=== PATIENT | male | born 1945 | race Caucasian/White ===

== ENCOUNTER 2017-01-06 03:36 | Emergency (ER) | payer MEDICARE ==
[2017-01-06 03:42] VITALS: PULSE 60
[2017-01-06] MEDS ORDERED: KETOROLAC 60 MG/2 ML VIAL IM STA (04:50)
[2017-01-06] MEDS ORDERED: ORPHENADRINE 30 MG/ML 2 ML VIAL IM STA (04:50)
--- NOTE | 2017-01-06 05:41 | XR ---
EXAM: XR Lumbar Spine, 2 or 3 Views. CLINICAL HISTORY: Reason: Pain TECHNIQUE: Frontal and lateral views of the lumbar spine. COMPARISON: No relevant prior studies available. FINDINGS: Vertebrae: No compression deformity or listhesis is seen. Disc spaces: Multilevel degenerative changes with disc space narrowing and endplate osteophyte formation within the visualized lower thoracic and lumbar spine. Soft tissues: Arterial vascular calcification is noted within the aorta. IMPRESSION: 1. Multilevel lumbar spondylosis, without compression deformity or listhesis. 2. Comment: If radicular symptoms persist, correlation with MRI could be considered on a follow-up basis.
--- NOTE | 2017-01-06 05:42 | ED ---
Back Pain HPI - General Chief Complaint: Back Pain/Injury Stated Complaint: BACK PAIN Time Seen by Provider: 01/06/17 04:49 Source: patient Limitations: no limitations - History of Present Illness Complaint: back pain Onset/Timin -: days(s) Similar Symptoms Previously: Yes Place: home Radiation: none Severity: moderate Quality: aching Consistency: constant Improves With: immobilization Worsens With: movement, sitting upright Context: bending Associated Symptoms: denies other symptoms - Related Data Home Medications Medication Instructions Recorded Confirmed Aspirin EC [Ecotrin] 81 mg PO DAILY 12/05/14 01/06/17 Atorvastatin [Lipitor] 40 mg PO HS 12/05/14 01/06/17 Lisinopril [Zestril] 5 mg PO DAILY 12/05/14 01/06/17 Metoprolol Tartrate [Lopressor] 25 mg PO HS 12/05/14 01/06/17 Previous Rx's Medication Instructions Recorded Ibuprofen [Motrin] 600 mg PO Q8HR PRN #20 tab 01/06/17 Methocarbamol [Robaxin-750] 750 mg PO TID PRN #30 tablet 01/06/17 Allergies Allergy/AdvReac Type Severity Reaction Status Date / Time No Known Allergies Allergy Verified 01/06/17 03:42 Review of Systems ROS Statement: Those systems with pertinent positive or pertinent negative responses have been documented in the HPI. ROS Other: All systems not noted in ROS Statement are negative. Constitutional: Denies: fever, chills, weakness Respiratory: Denies: cough, dyspnea Cardiovascular: Denies: chest pain, edema Gastrointestinal: Denies: abdominal pain, nausea, vomiting, diarrhea Genitourinary: Denies: dysuria, hematuria Musculoskeletal: Reports: as per HPI, back pain Skin: Denies: rash Neurological: Denies: headache, weakness, numbness, paresthesias Past Medical History Past Medical History: GERD/Reflux, Hyperlipidemia, Hypertension Additional Past Medical History / Comment(s): HX OF FX RT ANKLE X2, VOCAL CORD POLYPS, STATES VOICE IS RASPY. History of Any Multi-Drug Resistant Organisms: None Reported Past Surgical History: Coronary Bypass/CABG, Heart Catheterization With Stent Additional Past Surgical History / Comment(s): LUMP REMOVED UNDER RIGHT EAR, VOCAL CORD POLYPS REMOVED (2011),. CABG (12/2011) Past Anesthesia/Blood Transfusion Reactions: No Reported Reaction Date of Last Stent Placement:: 2004 Past Psychological History: No Psychological Hx Reported Smoking Status: Former smoker Past Alcohol Use History: Rare Past Drug Use History: None Reported General Exam Limitations: no limitations General appearance: alert, in no apparent distress Head exam: Present: atraumatic, normocephalic Eye exam: Present: normal appearance. Absent: scleral icterus, conjunctival injection Neck exam: Present: normal inspection, full ROM. Absent: tenderness Respiratory exam: Present: normal lung sounds bilaterally. Absent: respiratory distress, wheezes, rales, rhonchi Cardiovascular Exam: Present: regular rate, normal rhythm, normal heart sounds. Absent: systolic murmur, diastolic murmur, rubs, gallop GI/Abdominal exam: Present: soft. Absent: distended, tenderness, guarding, rebound, rigid Extremities exam: Present: normal inspection, normal capillary refill. Absent: pedal edema, calf tenderness Back exam: Present: tenderness, paraspinal tenderness. Absent: CVA tenderness ( R), CVA tenderness (L), vertebral tenderness Neurological exam: Present: reflexes normal. Absent: motor sensory deficit Skin exam: Present: warm, dry, intact, normal color. Absent: rash Course Vital Signs 01/06/17 01/06/17 03:40 06:00 Temperature 97 F L 97.2 F L Pulse Rate 60 60 Respiratory 18 14 Rate Blood Pressure 147/73 128/63 O2 Sat by Pulse 98 100 Oximetry Disposition Clinical Impression: Strain of lumbar region Disposition: HOME SELF-CARE Condition: Fair Instructions: Acute Low Back Pain (ED) Prescriptions: Ibuprofen [Motrin] 600 mg PO Q8HR PRN #20 tab PRN Reason: Pain Methocarbamol [Robaxin-750] 750 mg PO TID PRN #30 tablet PRN Reason: pain Referrals: Glynn Marin MD [Primary Care Provider] - 1-2 days
[2017-01-06 06:01] VITALS: BP 128/63; RESP 14; TEMP 97.2
== END 2017-01-06 06:14 | disposition home or self-care (01) ==
LOC: EC 03:36
DX: S39.012A Strain of muscle, fascia and tendon of lower back, initial encounter (principal); E78.5 Hyperlipidemia, unspecified; I10 Essential (primary) hypertension; Z95.5 Presence of coronary angioplasty implant and graft; Z87.891 Personal history of nicotine dependence; Z79.82 Long term (current) use of aspirin; Z79.899 Other long term (current) drug therapy; X58.XXXA Exposure to other specified factors, initial encounter
CPT/HCPCS: 72100; 99283; 96372 ×2; J2360; J1885

== ENCOUNTER → 2017-09-30 | Outpatient (CLI) | payer MEDICARE ==
[2017-09-30 10:24] LABS: ALT 48 U/L (21-72); AST 28 U/L (17-59); Alkaline Phosphatase 64 U/L (38-126); Anion Gap 9 mmol/L; Blood Urea Nitrogen 21 mg/dL (9-20); Calcium 9.5 mg/dL (8.4-10.2); Carbon Dioxide 26 mmol/L (22-30); Chloride 106 mmol/L (98-107); Cholesterol 147 mg/dL (<200); Glucose 101 mg/dL (74-99); HDL Cholesterol 48 mg/dL (40-60); Non-African American GFR(MDRD) >60 (>60 ml/min/1.73 sqM); Potassium 4.9 mmol/L (3.5-5.1); Sodium 141 mmol/L (137-145); Total Bilirubin 0.9 mg/dL (0.2-1.3); Total Protein 7.1 g/dL (6.3-8.2)
== END | disposition home or self-care (01) ==
LOC: LABWHC1 09:29
PROVIDERS: ATTEND Internal Medicine Interventional Cardiology
DX: E78.2 Mixed hyperlipidemia (principal)
CPT/HCPCS: 36415; 80053; 80061

== ENCOUNTER → 2017-12-30 | Outpatient (CLI) | payer MEDICARE ==
[2017-12-30 09:10] LABS: Cholesterol 109 mg/dL (<200); HDL Cholesterol 50 mg/dL (40-60); LDL Cholesterol,Calculated 41 mg/dL (0-99); Triglycerides 88 mg/dL (<150)
== END | disposition home or self-care (01) ==
LOC: LABWHC1 08:14
PROVIDERS: ATTEND Physician Assistant Medical
DX: E78.5 Hyperlipidemia, unspecified (principal); I25.10 Atherosclerotic heart disease of native coronary artery without angina pectoris
CPT/HCPCS: 36415; 80061

== ENCOUNTER → 2018-06-07 | Outpatient (CLI) | payer MEDICARE ==
[2018-06-07 10:27] LABS: ALT 38 U/L (21-72); AST 31 U/L (17-59); Albumin 3.9 g/dL (3.5-5.0); Alkaline Phosphatase 61 U/L (38-126); Anion Gap 6 mmol/L; Blood Urea Nitrogen 25 mg/dL (9-20); Carbon Dioxide 26 mmol/L (22-30); Chloride 107 mmol/L (98-107); Cholesterol 108 mg/dL (<200); Glucose 100 mg/dL (74-99); HDL Cholesterol 49 mg/dL (40-60); LDL Cholesterol,Calculated 46 mg/dL (0-99); Potassium 4.6 mmol/L (3.5-5.1); Sodium 139 mmol/L (137-145); Total Bilirubin 0.7 mg/dL (0.2-1.3); Total Protein 6.4 g/dL (6.3-8.2); Triglycerides 63 mg/dL (<150)
== END | disposition home or self-care (01) ==
LOC: LABWHC1 08:28
PROVIDERS: ATTEND Internal Medicine Interventional Cardiology
DX: E78.2 Mixed hyperlipidemia (principal)
CPT/HCPCS: 36415; 80053; 80061

== ENCOUNTER → 2018-12-21 | Outpatient (CLI) | payer MEDICARE ==
[2018-12-21 18:14] LABS: LDL Cholesterol,Calculated 51.2 mg/dL (0.0-131.0); VLDL Calculation 24.8 mg/dL (5.00-40.00)
== END | disposition home or self-care (01) ==
LOC: LABWHC1 08:17
PROVIDERS: ATTEND Internal Medicine Interventional Cardiology
DX: E78.2 Mixed hyperlipidemia (principal)
CPT/HCPCS: 36415; 80061; 84450; 84460

== ENCOUNTER 2018-12-28 11:58 | Inpatient (IN) | payer MEDICARE ==
[2018-12-28] MEDS ORDERED: NITROGLYCERIN OINT 1 INCH/GM PACKET TOPICAL STA (12:48)
[2018-12-28] MEDS ORDERED: ASPIRIN 81 MG PO STA (12:48)
--- NOTE | 2018-12-28 12:53 | ED ---
General Adult HPI - General Chief complaint: Chest Pain Stated complaint: Chest discomfort Time Seen by Provider: 12/28/18 12:31 Source: patient, RN notes reviewed Mode of arrival: wheelchair Limitations: no limitations - History of Present Illness Initial comments: Patient is a pleasant 73-year-old male presenting to the emergency Department with chest discomfort. Onset of symptoms was yesterday after snowblowing. Patient had pressure in his chest with associated dyspnea. Symptoms still remained somewhat however minimal at this point. No associated nausea or diaphoresis. Patient has had similar symptoms times in the past associated with this heart. Discomfort feels a pressure. No radiation. No leg pain or leg swelling. No cough or fever. - Related Data Home Medications Medication Instructions Recorded Confirmed Aspirin EC [Ecotrin] 81 mg PO DAILY 12/05/14 12/28/18 Lisinopril [Zestril] 5 mg PO DAILY 12/05/14 12/28/18 Metoprolol Tartrate [Lopressor] 25 mg PO HS 12/05/14 12/28/18 Atorvastatin Calcium [Lipitor] 20 mg PO DAILY 12/28/18 12/28/18 Cholecalciferol [Vitamin D3] 1,000 unit PO DAILY 12/28/18 12/28/18 Multivitamin,Therapeutic [Thera] 1 tab PO DAILY 12/28/18 12/28/18 [place]-3 Fatty Acids/Fish Oil [Fish 1 cap PO DAILY 12/28/18 12/28/18 Oil 1,000 mg Softgel] Tamsulosin [Flomax] 0.4 mg PO DAILY 12/28/18 12/28/18 Allergies Allergy/AdvReac Type Severity Reaction Status Date / Time No Known Allergies Allergy Verified 12/28/18 12:37 Review of Systems ROS Statement: Those systems with pertinent positive or pertinent negative responses have been documented in the HPI. ROS Other: All systems not noted in ROS Statement are negative. Constitutional: Denies: fever Eyes: Denies: eye pain ENT: Denies: ear pain Respiratory: Reports: dyspnea Cardiovascular: Reports: chest pain. Denies: palpitations, edema Endocrine: Denies: fatigue Gastrointestinal: Denies: abdominal pain Genitourinary: Denies: dysuria Musculoskeletal: Denies: back pain Skin: Denies: rash Neurological: Denies: weakness Past Medical History Past Medical History: GERD/Reflux, Hyperlipidemia, Hypertension Additional Past Medical History / Comment(s): HX OF FX RT ANKLE X2, VOCAL CORD POLYPS, STATES VOICE IS RASPY. History of Any Multi-Drug Resistant Organisms: None Reported Past Surgical History: Coronary Bypass/CABG, Heart Catheterization With Stent Additional Past Surgical History / Comment(s): LUMP REMOVED UNDER RIGHT EAR, VOCAL CORD POLYPS REMOVED (2011),. CABG (12/2011) Past Anesthesia/Blood Transfusion Reactions: No Reported Reaction Date of Last Stent Placement:: 2004 Past Psychological History: No Psychological Hx Reported Smoking Status: Former smoker Past Alcohol Use History: Rare Past Drug Use History: None Reported General Exam Limitations: no limitations General appearance: alert, in no apparent distress Head exam: Present: atraumatic Eye exam: Present: normal appearance, PERRL ENT exam: Present: normal oropharynx Neck exam: Present: normal inspection Respiratory exam: Present: normal lung sounds bilaterally. Absent: chest wall tenderness Cardiovascular Exam: Present: regular rate, normal rhythm Expanded Peripheral pulses: 2+: Radial (R), Radial (L), Posterior Tibialis (R), Posterior Tibialis (L) GI/Abdominal exam: Present: soft. Absent: distended, tenderness Extremities exam: Present: normal inspection. Absent: pedal edema, calf tenderness Neurological exam: Present: alert Psychiatric exam: Present: normal affect, normal mood Skin exam: Present: normal color Course Vital Signs 12/28/18 12/28/18 12:10 13:08 Temperature 97.6 F Pulse Rate 65 Pulse Rate [ 66 Apical] Respiratory 16 Rate Blood Pressure 148/72 O2 Sat by Pulse 99 Oximetry EKG Findings - EKG Comments: EKG Findings:: Normal sinus rhythm at 62. MD 198. QRS 122. QT 392. QTC 397. Normal axis. Right bundle branch block. Nonspecific ST-T. Patient is EKG from 12/04/2014 reviewed. Medical Decision Making - Medical Decision Making Patient reevaluated and resting comfortably in bed. Patient and family updated on results and plan. Case discussed in detail with Dr. Arreguin, will admit covering for - Lab Data Result diagrams: 12/28/18 12:49 12/28/18 12:49 Lab Results 12/28/18 12/28/18 12/28/18 Range/Units 12:49 12:49 12:49 WBC 7.1 (3.8-10.6) k/uL RBC 4.83 (4.30-5.90) m/uL Hgb 14.6 (13.0-17.5) gm/dL Hct 45.6 (39.0-53.0) % MCV 94.4 (80.0-100.0) fL MCH 30.2 (25.0-35.0) pg MCHC 32.0 (31.0-37.0) g/dL RDW 12.8 (11.5-15.5) % Plt Count 199 (150-450) k/uL Neutrophils % 57 % Lymphocytes % 31 % Monocytes % 8 % Eosinophils % 2 % Basophils % 1 % Neutrophils # 4.1 (1.3-7.7) k/uL Lymphocytes # 2.2 (1.0-4.8) k/uL Monocytes # 0.5 (0-1.0) k/uL Eosinophils # 0.1 (0-0.7) k/uL Basophils # 0.0 (0-0.2) k/uL PT (9.0-12.0) sec INR (<1.2) APTT (22.0-30.0) sec Sodium 141 (137-145) mmol/L Potassium 4.8 (3.5-5.1) mmol/L Chloride 107 (98-107) mmol/L Carbon Dioxide 27 (22-30) mmol/L Anion Gap 7 mmol/L BUN 20 (9-20) mg/dL Creatinine 0.95 (0.66-1.25) mg/dL Est GFR (CKD-EPI)AfAm >90 (>60 ml/min/1.73 sqM) Est GFR (CKD-EPI)NonAf 80 (>60 ml/min/1.73 sqM) Glucose 81 (74-99) mg/dL Calcium 9.7 (8.4-10.2) mg/dL Magnesium 2.2 (1.6-2.3) mg/dL Total Bilirubin 0.7 (0.2-1.3) mg/dL AST 26 (17-59) U/L ALT 44 (21-72) U/L Alkaline Phosphatase 91 (38-126) U/L Creatine Kinase 76 (55-170) U/L CK-MB (CK-2) 0.5 (0.0-2.4) ng/mL Troponin I <0.012 (0.000-0.034) ng/mL NT-Pro-B Natriuret Pep pg/mL Total Protein 7.3 (6.3-8.2) g/dL Albumin 4.4 (3.5-5.0) g/dL 12/28/18 12/28/18 Range/Units 12:49 12:49 WBC (3.8-10.6) k/uL RBC (4.30-5.90) m/uL Hgb (13.0-17.5) gm/dL Hct (39.0-53.0) % MCV (80.0-100.0) fL MCH (25.0-35.0) pg MCHC (31.0-37.0) g/dL RDW (11.5-15.5) % Plt Count (150-450) k/uL Neutrophils % % Lymphocytes % % Monocytes % % Eosinophils % % Basophils % % Neutrophils # (1.3-7.7) k/uL Lymphocytes # (1.0-4.8) k/uL Monocytes # (0-1.0) k/uL Eosinophils # (0-0.7) k/uL Basophils # (0-0.2) k/uL PT 9.8 (9.0-12.0) sec INR 0.9 (<1.2) APTT 24.6 (22.0-30.0) sec Sodium (137-145) mmol/L Potassium (3.5-5.1) mmol/L Chloride (98-107) mmol/L Carbon Dioxide (22-30) mmol/L Anion Gap mmol/L BUN (9-20) mg/dL Creatinine (0.66-1.25) mg/dL Est GFR (CKD-EPI)AfAm (>60 ml/min/1.73 sqM) Est GFR (CKD-EPI)NonAf (>60 ml/min/1.73 sqM) Glucose (74-99) mg/dL Calcium (8.4-10.2) mg/dL Magnesium (1.6-2.3) mg/dL Total Bilirubin (0.2-1.3) mg/dL AST (17-59) U/L ALT (21-72) U/L Alkaline Phosphatase (38-126) U/L Creatine Kinase (55-170) U/L CK-MB (CK-2) (0.0-2.4) ng/mL Troponin I (0.000-0.034) ng/mL NT-Pro-B Natriuret Pep 105 pg/mL Total Protein (6.3-8.2) g/dL Albumin (3.5-5.0) g/dL - Radiology Data Radiology results: image reviewed (Chest x-ray reveals no acute abnormality.) Disposition Clinical Impression: Chest pain Disposition: ADMITTED IP TO THIS HOSP Is patient prescribed a controlled substance at d/c from ED?: No Referrals: Glynn Marin MD [Primary Care Provider] - 1-2 days Decision Time: 14:27
[2018-12-28 13:17] LABS: ALT 44 U/L (21-72); AST 26 U/L (17-59); Albumin 4.4 g/dL (3.5-5.0); Alkaline Phosphatase 91 U/L (38-126); Anion Gap 7 mmol/L; Blood Urea Nitrogen 20 mg/dL (9-20); Calcium 9.7 mg/dL (8.4-10.2); Carbon Dioxide 27 mmol/L (22-30); Chloride 107 mmol/L (98-107); Creatine Kinase 76 U/L (55-170); Glucose 81 mg/dL (74-99); Magnesium 2.2 mg/dL (1.6-2.3); Potassium 4.8 mmol/L (3.5-5.1); Sodium 141 mmol/L (137-145); Total Bilirubin 0.7 mg/dL (0.2-1.3); Total Protein 7.3 g/dL (6.3-8.2)
[2018-12-28 13:18] LABS: Basophils % (A) 1 %; Eosinophils # (A) 0.1 k/uL (0-0.7); Eosinophils % (A) 2 %; HCT 45.6 % (39.0-53.0); HGB 14.6 gm/dL (13.0-17.5); Lymphocytes # (A) 2.2 k/uL (1.0-4.8); Lymphocytes % (A) 31 %; MCH 30.2 pg (25.0-35.0); MCV 94.4 fL (80.0-100.0); Mean Platelet Volume 7.6; Monocytes # (A) 0.5 k/uL (0-1.0); Monocytes % (A) 8 %; Neutrophils # (A) 4.1 k/uL (1.3-7.7); Neutrophils % (A) 57 %; Platelet Count 199 k/uL (150-450); RBC 4.83 m/uL (4.30-5.90); RDW 12.8 % (11.5-15.5); WBC 7.1 k/uL (3.8-10.6)
[2018-12-28 13:23] LABS: INR 0.9 (<1.2); Partial Thromboplastin Time 24.6 sec (22.0-30.0); Prothrombin Time 9.8 sec (9.0-12.0)
[2018-12-28 13:40] LABS: Creatine Kinase MB 0.5 ng/mL (0.0-2.4); Troponin I <0.012 ng/mL (0.000-0.034)
--- NOTE | 2018-12-28 14:03 | XR ---
EXAMINATION TYPE: XR chest 2V DATE OF EXAM: 12/28/2018 COMPARISON: Chest x-ray January 20, 2012. HISTORY: Chest pain. TECHNIQUE: Frontal and lateral views of the chest are obtained. FINDINGS: Post CABG changes with mediastinal clips and sternal wires is redemonstrated. There is no f ocal air space opacity, pleural effusion, or pneumothorax seen. The cardiac silhouette size is withi n normal limits. The osseous structures are intact. IMPRESSION: No acute cardiopulmonary process.
[2018-12-28] MEDS ORDERED: NITROGLYCERIN SL TABS 0.4 MG TAB SUBLINGUAL PRN (14:28)
[2018-12-28] MEDS ORDERED: METOPROLOL TARTRATE 25 MG TAB PO SCH (21:30)
[2018-12-28 22:34] VITALS: BMI 31.7
--- NOTE | 2018-12-28 22:40 | HP ---
HISTORY AND PHYSICAL DATE OF ADMISSION: December 28, 2018 PRESENTING COMPLAINT: Chest pain. HISTORY OF PRESENTING COMPLAINT: A very pleasant 73-year-old patient Dr. Marin from [place] and clinical psychologist licensed Dr. Velázquez. Chronic stable medical conditions include GERD, hypertension, hyperlipidemia, osteoarthritis especially of the knees. The patient has known coronary with stent and coronary bypass about 12 years ago. The patient normally able to snow blow his drive as his neighbors. Yesterday, he did this you do not drive, then started feeling unwell, developed some chest pressure and tightness and had to go back and lay down. Earlier today, the patient again had some chest pressure, did not radiate, felt a bit short of breath, chest tightness, tired, run down and decided to come in, was diagnosed with unstable angina. Troponin was negative. The patient's last stress test was a while ago. The patient is otherwise rather active. REVIEW OF SYSTEMS: CONSTITUTIONAL: None. HEENT: None. RESPIRATORY: None. CARDIOVASCULAR: As above. GASTROINTESTINAL: Heartburn. GENITOURINARY: LYMPHATICS: None. PSYCHIATRIC: None. NEUROLOGICAL none. PAST MEDICAL HISTORY: GERD, hypertension, hyperlipidemia, coronary artery with stent and bypass, vocal cord polyps that were removed. PAST SURGICAL HISTORY: Coronary bypass stent, lump removed from the right ear and vocal cord polyps removed. SOCIAL HISTORY: The patient smoked in the remote past. . 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 HOME MEDICATIONS: 1. Flomax 0.4 mg a day. 2. Fish oil 1000 mg a day. 3. Multivitamin one tablet day. 4. Vitamin D3 3000 units p.o. daily. 5. Lopressor 25 mg at bedtime. 6. Zestril 5 mg p.o. daily. 7. Lipitor 20 mg p.o. daily. 8. Aspirin 81 mg p.o. daily. ALLERGIES: None. PHYSICAL EXAMINATION: VITAL SIGNS: Temperature 97.5, pulse 59, respirations 16, blood pressure 151/68, pulse 98% on room air. GENERAL APPEARANCE: Well built. BMI 31.8. Sitting up comfortable, eyes: Pupils appearance of nose and ears are normal. Neck JVD not raised. Mass not palpable. Respiratory effort: Lungs fair entry. Cardiovascular 1st and 2nd sounds normal. No edema. ABDOMEN: Soft, nontender. Liver and spleen not palpable. Lymphatics: No lymph node palpable. PSYCHIATRY: Alert and oriented x3. Mood and affect normal neurological pupils clear grossly intact. Power sensation grossly intact. INVESTIGATIONS: White count 7.1, hemoglobin 14.6 potassium 4.8. Troponin times. EKG tracing personally reviewed by me shows right bundle branch block. X-ray film personally reviewed by me shows lung bryant to be clear. ASSESSMENT: 1. Unstable angina in a patient with known coronary artery disease with no stress test. Care was discussed with the patient and . Questions were answered. A copy for Dr. Marin. Will be kept after cardiac catheterization as symptoms recurrent. gastroesophageal reflux disease hyperlipidemia next essential hypertension, artery prior with bypass 20 years ago. PLAN: The patient is currently aspirin nitroglycerin paste. Home medications are resumed. The patient is currently symptom-free. We will hold off any IV heparin. The patient will be kept n.p.o. after midnight for possible cardiac catheterization. Care was discussed the patient and at the bedside. Questions were answered copy Dr. Marin in [place]. The. MMODL / IJN: [id number] /
[2018-12-28] MEDS: NITROGLYCERIN OINT 1 INCH/GM PACKET TOPICAL SCH (22:46)
[2018-12-28] MEDS: ATORVASTATIN 20 MG TAB PO SCH (22:48)
[2018-12-29] MEDS: NITROGLYCERIN OINT 1 INCH/GM PACKET TOPICAL SCH ×2 (00:06→05:50)
[2018-12-29 01:27] LABS: Cholesterol 111 mg/dL (<200); HDL Cholesterol 43 mg/dL (40-60); LDL Cholesterol,Calculated 42 mg/dL (0-99); Triglycerides 130 mg/dL (<150)
[2018-12-29] MEDS ORDERED: ASPIRIN 325 MG TAB PO SCH (09:00)
[2018-12-29] MEDS ORDERED: ATORVASTATIN 20 MG TAB PO SCH (09:00)
[2018-12-29] MEDS ORDERED: ASPIRIN 81 MG PO SCH (09:00)
[2018-12-29] MEDS: ISOSORBIDE MONONITRATE ER 30 MG TAB.ER.24H PO SCH (09:23)
[2018-12-29] MEDS: LISINOPRIL 5 MG TAB PO SCH (09:23)
[2018-12-29] MEDS: ATORVASTATIN 20 MG TAB PO SCH (09:23)
[2018-12-29] MEDS: TAMSULOSIN 0.4 MG CAP.ER.24H PO SCH (09:23)
[2018-12-29] MEDS ORDERED: REGADENOSON 0.4 MG/5 ML SYRINGE IV ONE (10:11)
[2018-12-29] MEDS ORDERED: CAFFEINE CITRATE 60 MG/3 ML VIAL IV PRN (10:11)
--- NOTE | 2018-12-29 11:21 | P.CRDCN ---
History of Present Illness History of present illness: This is a pleasant 73-year-old male past medical history significant for coronary artery disease status post stent placement to the mid OM1 in 2004 and subsequently thereafter 2-vessel bypass in 2011 with a JIMENEZ to LAD and SVG to RCA. He also has hypertension, dyslipidemia and BPH. He follows in the office with Dr. Velázquez. We have been asked to see him in consultation for symptoms of chest discomfort. He states Tuesday while he was snow blowing he started feeling a tightness in his chest in the mid-sternal region associated with significant diaphoresis and mild shortness of breath. There was no radiation to the arm, back, neck or jaw. He had to stop snow blowing and go inside to sit down due to the discomfort. He sat down and took a SL nitroglycerin. His symptoms slowly improved throughout the remainder of the day. He eventually started to feel better. 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 He again had a discomfort in his chest and felt generally unwell. He went to see his PCP and was sent in for further evaluation. He states he has been increasingly fatigued over the previous few weeks as well, which is abnormal for him. Heart rates have been running on the low side in the 40-50 range. EKG reveals right bundle branch block with no ST changes. Chest xray negative for an acute cardiopulmonary process. Laboratory data reviewed, WBC 7.1, hgb 14.6, plt 199, sodium 141, potassium 4.8 , creatinine 0.95, magnesium 2.2, cardiac enzymes negative 3, LDL 42 and HDL 43. Current cardiac medications include aspirin 81 mg daily, atorvastatin 20 mg daily, lisinopril 5 mg daily, Lopressor 25 mg daily. Most recent echocardiogram obtained in the office May 2018 reveals preserved left ventricular systolic function, moderate mitral regurgitation, mild tricuspid regurgitation and mild aortic regurgitation. Most recent stress test performed in the office 2015 was negative for reversible cardiac ischemia. At the time of my exam: CONSTITUTIONAL: Denies fever. Denies chills. EYES: Denies blurred vision. Denies vision changes. Denies eye pain. EARS, NOSE, MOUTH & THROAT: Denies headache. Denies sore throat. Denies ear pain. CARDIOVASCULAR: Denies chest pain. Denies shortness of breath. Denies orthopnea. Denies PND. Denies palpitations. RESPIRATORY: Denies cough. GASTROINTESTINAL: Denies abdominal pain. Denies diarrhea. Denies constipation. Denies nausea. Denies vomiting. MUSCULOSKELETAL: Denies myalgias. INTEGUMENTARY: Denies pruitis. Denies rash. NEUROLOGIC: Denies numbness. Denies tingling. Denies weakness. PSYCHIATRIC: Denies anxiety. Denies depression. ENDOCRINE: Denies fatigue. Denies weight change. Denies polydipsia. Denies polyurina. GENITOURINARY: Denies burning, hematuria or urgency with micturation. HEMATOLOGIC: Denies history of anemia. Denies bleeding. Blood pressure 143/74 artery 58 afebrile maintaining oxygen saturation on room air GENERAL: This is a 73-year-old male in no apparent distress at the time of my examination. HEENT: Head is atraumatic, normocephalic. Pupils are equal, round. Sclerae anicteric. Conjunctivae are clear. Mucous membranes of the mouth are moist. Neck is supple. There is no jugular venous distention. No carotid bruit is heard. LUNGS: Clear to auscultation no wheezes, rales or rhonchi. No chest wall tenderness is noted on palpation or with deep breathing. HEART: Regular rate and rhythm with murmur at the left sternal border, no rubs or gallops. S1 and S2 heard. ABDOMEN: Soft, nontender. Bowel sounds are heard. No organomegaly noted. EXTREMITIES: No evidence of peripheral edema and no calf tenderness noted. VASCULAR: Radial and dorsalis pedis pulses palpated, no evidence of clubbing. NEUROLOGIC: Patient is awake, alert and oriented x3. ASSESSMENT Chest pain, possibly suggestive of angina with history of coronary artery disease History of coronary artery disease s/p bypass grafting 2012 Hypertension Dyslipidemia PLAN An acute coronary event has been ruled out. Obtain 2D echocardiogram and doppler study to assess cardiac structure and function. Add on a small dose of oral nitrate, imdur 30 mg. Given first dose now. Increase activity in the farooq and assess for exertional chest discomfort. If he has symptoms of exertional chest pain or angina we will proceed with cardiac catheterization. If he is chest pain free with exertion we will order a stress test to assess for reversible cardiac ischemia. Discontinue lopressor for bradycardia. Further recommendations to follow based on clinical course. Thank you kindly for this consultation. Nurse Practitioner note has been reviewed, I agree with a documented findings and plan of care. Patient was seen and examined. Past Medical History Past Medical History: Coronary Artery Disease (CAD), GERD/Reflux, Hyperlipidemia , Hypertension Additional Past Medical History / Comment(s): HX OF FX RT ANKLE X2, VOCAL CORD POLYPS, STATES VOICE IS RASPY. History of Any Multi-Drug Resistant Organisms: None Reported Past Surgical History: Coronary Bypass/CABG, Heart Catheterization With Stent Additional Past Surgical History / Comment(s): LUMP REMOVED UNDER RIGHT EAR, VOCAL CORD POLYPS REMOVED (2011),. CABG - double (12/2011) Past Anesthesia/Blood Transfusion Reactions: No Reported Reaction Date of Last Stent Placement:: 2004 Past Psychological History: No Psychological Hx Reported Smoking Status: Former smoker Past Alcohol Use History: Rare Past Drug Use History: None Reported - Past Family History Father Additional Family Medical History / Comment(s): killed by train Mother Additional Family Medical History / Comment(s): killed by train Medications and Allergies Home Medications Medication Instructions Recorded Confirmed Type Aspirin EC [Ecotrin] 81 mg PO DAILY 12/05/14 12/28/18 History Lisinopril [Zestril] 5 mg PO DAILY 12/05/14 12/28/18 History Metoprolol Tartrate [Lopressor] 25 mg PO HS 12/05/14 12/28/18 History Atorvastatin Calcium [Lipitor] 20 mg PO DAILY 12/28/18 12/28/18 History Cholecalciferol [Vitamin D3] 1,000 unit PO DAILY 12/28/18 12/28/18 History Multivitamin,Therapeutic [Thera] 1 tab PO DAILY 12/28/18 12/28/18 History Slade-3 Fatty Acids/Fish Oil [Fish 1 cap PO DAILY 12/28/18 12/28/18 History Oil 1,000 mg Softgel] Tamsulosin [Flomax] 0.4 mg PO DAILY 12/28/18 12/28/18 History Allergies Allergy/AdvReac Type Severity Reaction Status Date / Time No Known Allergies Allergy Verified 12/28/18 12:37 Physical Exam Vitals: Vital Signs Temp Pulse Pulse Pulse Resp BP BP 12/29/18 03:56 97.6 F 48 L 16 118/62 12/29/18 03:32 16 12/29/18 00:00 97.7 F 59 L 16 134/67 12/28/18 20:00 16 12/28/18 19:51 97.5 F L 52 L 16 135/68 12/28/18 18:47 59 L 15 149/86 12/28/18 13:08 66 12/28/18 12:10 97.6 F 65 16 148/72 Pulse Ox 12/29/18 03:56 98 12/29/18 03:32 12/29/18 00:00 96 12/28/18 20:00 12/28/18 19:51 98 12/28/18 18:47 95 12/28/18 13:08 12/28/18 12:10 99 Intake and Output 12/28/18 12/29/18 12/29/18 22:59 06:59 14:59 Other: Voiding Method Toilet Toilet # Voids 2 2 Results 12/28/18 12:49 12/28/18 12:49 Cardiac Enzymes 12/28/18 12/28/18 12/28/18 Range/Units 12:49 12:49 19:06 AST 26 (17-59) U/L CK-MB (CK-2) 0.5 (0.0-2.4) ng/mL Troponin I <0.012 <0.012 (0.000-0.034) ng/mL 12/29/18 Range/Units 00:28 AST (17-59) U/L CK-MB (CK-2) (0.0-2.4) ng/mL Troponin I <0.012 (0.000-0.034) ng/mL Coagulation 12/28/18 Range/Units 12:49 PT 9.8 (9.0-12.0) sec APTT 24.6 (22.0-30.0) sec Lipids 12/28/18 Range/Units 12:49 Triglycerides 130 (<150) mg/dL Cholesterol 111 (<200) mg/dL HDL Cholesterol 43 (40-60) mg/dL CBC 12/28/18 Range/Units 12:49 WBC 7.1 (3.8-10.6) k/uL RBC 4.83 (4.30-5.90) m/uL Hgb 14.6 (13.0-17.5) gm/dL Hct 45.6 (39.0-53.0) % Plt Count 199 (150-450) k/uL Comprehensive Metabolic Panel 12/28/18 Range/Units 12:49 Sodium 141 (137-145) mmol/L Potassium 4.8 (3.5-5.1) mmol/L Chloride 107 (98-107) mmol/L Carbon Dioxide 27 (22-30) mmol/L BUN 20 (9-20) mg/dL Creatinine 0.95 (0.66-1.25) mg/dL Glucose 81 (74-99) mg/dL Calcium 9.7 (8.4-10.2) mg/dL AST 26 (17-59) U/L ALT 44 (21-72) U/L Alkaline Phosphatase 91 (38-126) U/L Total Protein 7.3 (6.3-8.2) g/dL Albumin 4.4 (3.5-5.0) g/dL Current Medications Generic Name Dose Route Start Last Admin Trade Name Freq PRN Reason Stop Dose Admin Aspirin 81 mg 12/29/18 09:00 Aspirin PO DAILY [facility] Atorvastatin Calcium 20 mg 12/28/18 22:37 12/28/18 22:48 Lipitor PO 20 mg DAILY JEAN Administration Lisinopril 5 mg 12/29/18 09:00 Zestril PO DAILY [facility] Metoprolol Tartrate 25 mg 12/28/18 21:30 12/28/18 22:48 Lopressor PO 25 mg HS JEAN Administration Nitroglycerin 1 inch 12/28/18 18:00 12/29/18 05:50 Nitro-Bid Oint TOPICAL Not Given Q6HR [facility] Nitroglycerin 0.4 mg 12/28/18 14:28 Nitrostat SUBLINGUAL Q5M PRN Chest Pain Sodium Chloride 10 ml 12/28/18 21:00 12/28/18 22:49 Saline Flush IV 10 ml BID [facility] Administration Tamsulosin HCl 0.4 mg 12/29/18 09:00 Flomax PO DAILY [facility] Intake and Output 12/28/18 12/29/18 12/29/18 22:59 06:59 14:59 Other: Voiding Method Toilet Toilet # Voids 2 2 12/28/18 12:49 12/28/18 12:49
--- NOTE | 2018-12-29 14:41 | NM ---
EXAMINATION TYPE: NM stress lexiscan cardiolite DATE OF EXAM: 12/29/2018 COMPARISON: Chest x-ray 12/28/2018 HISTORY: Chest pain TECHNIQUE: After the intravenous administration of 10.26 mCi Tc 99m Sestamibi - Cardiolite resting S PECT images acquired 55 minutes post injection. The patient received 0.4mg Lexiscan, 25.6 mCi Tc 99m Sestamibi - Stress images obtained [address] injection FINDINGS: Review of stress and rest SPECT images demonstrates some questionable mild decreased uptake along the anteroseptal left ventricle on stress as compared to rest images. Gated analysis shows normal wall m otion with an estimated left ventricular ejection fraction of 72 %. IMPRESSION: Question some pharmacologically induced left ventricular myocardial ischemia along the anteroseptal l eft ventricle towards the base of the heart. Consider echocardiographic correlation for elevated ejec tion fraction.
[2018-12-29] MEDS ORDERED: SODIUM CHLORIDE 0.9% 1,000 ML in EMPTY BAG 1 BAG IV ONE (15:49)
[2018-12-29] MEDS ORDERED: ALPRAZolam 0.25 MG TAB PO PRN (15:49)
[2018-12-29] MEDS ORDERED: ALPRAZolam 0.5 MG TAB PO PRN (15:49)
--- NOTE | 2018-12-29 17:32 | PN ---
PROGRESS NOTE DATE OF SERVICE: 12/29/2018 PRESENTING COMPLAINT: Chest pain. INTERVAL HISTORY: Patient admitted with unstable angina. He did undergo a stress test that came back positive. No further episodes. Patient is due to go for a cardiac catheterization. REVIEW OF SYSTEMS: Done for constitutional, cardiovascular, GI, pulmonary; relevant findings as above. CURRENT MEDICATIONS: Reviewed. They include aspirin, Lipitor, Imdur. PHYSICAL EXAMINATION: Temperature 98.2, pulse 57, respiration 18, blood pressure 118/63, pulse ox 96% on room air. GENERAL APPEARANCE: Sitting up. Comfortable. EYES: Pupils equal. Conjunctivae normal. NECK: JVD not raised. Mass not palpable. RESPIRATORY: Effort normal. Lungs are clear. CARDIOVASCULAR: First and second sounds normal. No edema. ABDOMEN: Soft, non-tender. Liver and spleen not palpable. PSYCHIATRY: Alert and oriented x3. Mood and affect normal. INVESTIGATIONS: Troponin x3 negative. Nuclear stress test positive for ischemia. ASSESSMENT: 1. Unstable angina in a patient with known coronary artery disease, now with a positive stress test, awaiting cardiac catheterization. 2. Gastroesophageal reflux disease. 3. Hyperlipidemia. 4. Essential hypertension. 5. Coronary artery disease with prior history of coronary artery bypass. PLAN: Continue current medication and treatment plan. Await cardiac catheterization per Cardiology. MMODL / IJN: [id number] /
[2018-12-29 19:45] VITALS: RESP 16
--- NOTE | 2018-12-29 19:49 | ECHOF ---
Referral Reason:cp MEASUREMENTS -------- HEIGHT: 172.7 cm WEIGHT: 94.8 kg BP: 118/62 RVIDd: 2.7 cm (< 3.3) IVSd: 1.1 cm (0.6 - 1.1) LVIDd: 4.8 cm (3.9 - 5.3) LVPWd: 1.1 cm (0.6 - 1.1) IVSs: 1.3 cm LVIDs: 3.7 cm LVPWs: 1.4 cm LAESV Index (A-L): 17.23 ml/m Ao Diam: 3.5 cm (2.0 - 3.7) AV Cusp: 2.0 cm (1.5 - 2.6) LA Diam: 4.2 cm (2.7 - 3.8) EPSS: 0.9 cm MV E Bryce: 0.89 m/s MV DecT: 257 ms MV A Bryce: 0.88 m/s MV E/A Ratio: 1.00 AR PHT: 445 ms RAP: 5.00 mmHg RVSP: 25.56 mmHg MV EF SLOPE: 81.93 mm/s (70 - 150) MV EXCURSION: 1.64 cm (> 18.000) FINDINGS -------- Sinus rhythm. This was a technically difficult study with suboptimal views. The left ventricular size is normal. There is borderline concentric left ventricular hypertrophy. Overall left ventricular systolic function is normal with, an EF between 55 - 60 %. The right ventricle is normal in size and function. Normal LA size by volume 22+/-6 ml/m2. The right atrium is normal in size. 3 ml of Lumason was utilized for enhancement of images. Aortic valve is trileaflet and is mildly thickened. There is mild aortic regurgitation. There is no evidence of aortic stenosis. The mitral valve leaflets are mildly thickened. There is trace to mild mitral regurgitation. Mild tricuspid regurgitation present. Right ventricular systolic pressure is normal at < 35 mmHg. There is no evidence of pulmonary hypertension. The pulmonic valve was not well visualized. The aortic root size is normal. IVC Not well visulized. There is no pericardial effusion. CONCLUSIONS -------- 1. Sinus rhythm. 2. This was a technically difficult study with suboptimal views. 3. The left ventricular size is normal. 4. There is borderline concentric left ventricular hypertrophy. 5. Overall left ventricular systolic function is normal with, an EF between 55 - 60 %. 6. Normal LA size by volume 22+/-6 ml/m2. 7. 3 ml of Lumason was utilized for enhancement of images. 8. Aortic valve is trileaflet and is mildly thickened. 9. There is mild aortic regurgitation. 10. The mitral valve leaflets are mildly thickened. 11. There is trace to mild mitral regurgitation. 12. Mild tricuspid regurgitation present. 13. Right ventricular systolic pressure is normal at < 35 mmHg. 14. There is no evidence of pulmonary hypertension. 15. The pulmonic valve was not well visualized. 16. The aortic root size is normal. 17. IVC Not well visulized. 18. There is no pericardial effusion. [employer]PERATIONS SUPERVISOR: Zeb Doyle RDCS
--- NOTE | 2018-12-29 20:20 | EST ---
EXERCISE STRESS DATE OF SERVICE: 12/28/2018 AGE: 73 SEX: Male. HT: 5'8" WT: 209 pounds. PROTOCOL: Lexiscan Cardiolite STAGE: DURATION OF EXERCISE: HEART RATE REST: 67 BLOOD PRESSURE REST: 110/61 MAXIMUM HEART RATE ACHIEVED: 111 MAXIMUM BLOOD PRESSURE: 114/66 85% MPHR: 100% MPHR: METS: INDICATIONS: Chest pain. CLINICAL INFORMATION: STRESS DATA: Pretesting physical examination showed heart rate of 67, pressure 110/61 mmHg. Baseline EKG showed sinus mechanism. Lexiscan 0.4 mg was given over 15 seconds per protocol. Max heart rate was 111 beats per minute. Maximum pressure was 114/66 mmHg. Clinically the patient did not have any symptoms of chest pain or discomfort and the EKG did not show any significant ST or T-wave abnormalities concerning for ischemia. CONCLUSION: 1. Nondiagnostic electrocardiogram stress testing in response to Lexiscan. 2. Please follow up on the Cardiolite portion on separate report from Radiology Department. MMODL / IJN: [id number] /
[2018-12-30] MEDS ORDERED: ASPIRIN 325 MG TAB PO ONE (06:00)
[2018-12-30] MEDS: ISOSORBIDE MONONITRATE ER 30 MG TAB.ER.24H PO SCH (06:08)
[2018-12-30] MEDS: LISINOPRIL 5 MG TAB PO SCH (06:08)
[2018-12-30] MEDS: ATORVASTATIN 20 MG TAB PO SCH (06:08)
[2018-12-30] MEDS ORDERED: IV FLUID CONTINUATION 450 ML IV ONE (08:45)
[2018-12-30] MEDS ORDERED: fentaNYL (PF) 50 MCG/ML 2 ML AMP ONE (09:04)
[2018-12-30] MEDS ORDERED: fentaNYL (PF) 50 MCG/ML 2 ML AMP IV ONE (09:11)
[2018-12-30] MEDS ORDERED: LIDOCAINE 1% INJ 10MG/ML (20 ML MDV) SQ ONE (09:16)
[2018-12-30] MEDS ORDERED: IOPAMIDOL-370 150ML BTL INJ ONE (09:30)
[2018-12-30] MEDS ORDERED: IOPAMIDOL-370 50ML BTL INJ ONE (09:30)
[2018-12-30] MEDS ORDERED: RX INFO: IV CONTRAST WAS GIVEN 1 EACH MISC MISCELLANE PRN (09:46)
[2018-12-30] MEDS ORDERED: SODIUM CHLORIDE 0.9% 1,000 ML IV SCH (10:00)
[2018-12-30] MEDS: TAMSULOSIN 0.4 MG CAP.ER.24H PO SCH (12:50)
--- NOTE | 2018-12-30 14:06 | CC ---
CARDIAC CATHETERIZATION REPORT Mr. Gagnon is a 73-year-old male with known history of coronary artery disease, status post coronary artery bypass grafting in 2012, who presented with symptoms of chest discomfort. He had no evidence of abnormal enzymes but had abnormal myocardial perfusion imaging. In view of that, recommendation was made regarding cardiac catheterization. The procedure, its risks and complication were discussed with the patient, who was in full understanding and agreement. PROCEDURE: Patient was brought to the cathode builder in a fasting, semi-sedated state after receiving fentanyl and Benadryl and achieving moderate conscious sedated state. Using Xylocaine anesthesia and Seldinger technique, a 6-English sheath was introduced into the right femoral artery. Selective right and left coronary angiography was performed. Using 6- English, 4 bend, right and left Rocky catheters, multiple views were taken of the arteries, including hemiaxial views. Following that, 6-English right Rocky catheter was used to cannulate the saphenous vein graft to the right coronary artery and JIMENEZ to LAD. Following that, a 6-English tight pigtail catheter was introduced into the left ventricle and a 30- degree EDWARDS view of the left ventricle was obtained. Following that, catheter and sheath were removed. Hemostasis was obtained with deployment of Angio-Seal. There was no immediate complication. Patient was returned to his room in stable condition. FINDINGS: LEFT MAIN: This is a large-sized vessel bifurcating into left circumflex and left anterior descending coronary artery. Left main coronary artery is calcified, has about 20% plaque in the mid segment without any evidence of high-grade stenosis. LEFT ANTERIOR DESCENDING ARTERY: This vessel is totally occluded at the takeoff with no antegrade flow. LEFT CIRCUMFLEX: This is a nondominant vessel giving rise to a large obtuse marginal branch. The left circumflex has mild plaque of 20% without any evidence of high-grade stenosis. RIGHT CORONARY ARTERY: This is a large dominant vessel bifurcating distally into PDA and posterolateral segment and branches. In the mid segment of the right coronary artery there is a long tubular lesion of 99% with competitive flow into the graft. SAPHENOUS VEIN GRAFT TO THE RIGHT CORONARY ARTERY: The proximal and distal anastomotic sites are patent. The flow into the PDA and PLV is brisk. There is no evidence of high-grade stenosis. JIMENEZ TO THE LAD: The distal anastomotic site is patent. The flow into the LAD is brisk and there is retrograde flow in the proximal segment. LEFT VENTRICULOGRAM: Left ventriculogram was performed in 30-degree EDWARDS view and revealed normal left ventricular size and systolic function, ejection fraction of 60%. There was no significant mitral regurgitation. HEMODYNAMICS: There was no gradient across the aortic valve. The left ventricular end- diastolic pressure was 16 to 20 mmHg. CONCLUSION: 1. Totally occluded proximal right coronary artery. 2. Severe obstructive disease involving the mid right coronary artery. 3. Patent JIMENEZ to LAD. 4. Patent saphenous vein graft to the right coronary artery. 5. Normal left ventricular size and systolic function. RECOMMENDATIONS: In view of findings and anatomy, I recommend continued medical therapy with the aggressive coronary risk modifications that have been initiated. Those findings and recommendations were discussed with the patient and his family, who are in full understanding and agreement. Duration of procedure was 20 minutes. BRENDEN / CECELIA: [id number] /
[2018-12-30 16:03] VITALS: BP 94/50; PULSE 70; TEMP 98.3
--- NOTE | 2018-12-31 08:22 | DS ---
DISCHARGE SUMMARY DATE OF ADMISSION: December 28, 2018 DATE OF DISCHARGE: December 30, 2018. FINAL DIAGNOSES: 1. Unstable angina. 2. Coronary artery disease. 3. Gastroesophageal reflux disease. 4. Hyperlipidemia. 5. Essential hypertension. 6. Coronary artery disease with prior history of coronary artery bypass. HOSPITAL COURSE: This patient with known coronary artery disease/bypass, presented with chest pain. Did undergo a nuclear stress test that was positive. Did undergo cardiac catheterization, found to have chronic changes. The patient is up and about symptom-free by the time of discharge. CONSULTATIONS: Dr. Jeter from Cardiology, Dr. Velázquez did cardiac catheterization. PHYSICAL EXAMINATION: Temperature 98.3, pulse 72, respiration 16, blood pressure 94/50, pulse ox 96% on room air. Lungs are clear. Cardiovascular: 1st and 2nd sounds normal. DISCHARGE MEDICATIONS: 1. Aspirin 81 mg a day. 2. Zestril 5 mg a day. 3. Vitamin D3 1000 units p.o. daily. 4. Multivitamin 1 tablet p.o. daily. 5. Fish oil 1000 mg p.o. daily. 6. Flomax 0.4 mg daily. 7. Lipitor 40 mg p.o. daily. 8. Imdur ER 30 mg p.o. daily. 9. Lopressor 12.5 p.o. b.i.d. 10.Nitrostat 0.4 sublingual q.5 p.r.n. FOLLOWUP: Follow up with Dr. Velázquez on January 04, 2019. Follow up with Dr. Karl Marin in [place] in 3 days. Care was discussed with the patient. MMODL / IJN: [id number] /
[2018-12-31] MEDS ORDERED: ASPIRIN 81 MG PO SCH (09:00)
== END 2018-12-30 17:24 | disposition home or self-care (01) | DRG 287 ==
LOC: EC 11:58 → 1SOBS 14:27 → OBSVTOIN 12-30 12:52
PROVIDERS: ADMIT Hospitalist; ATTEND Hospitalist
PROC: B2111ZZ Fluoroscopy of Multiple Coronary Arteries using Low Osmolar Contrast (ICD-10-PCS; 2018-12-30)
PROC: B2131ZZ Fluoroscopy of Multiple Coronary Artery Bypass Grafts using Low Osmolar Contrast (ICD-10-PCS; 2018-12-30)
PROC: B2151ZZ Fluoroscopy of Left Heart using Low Osmolar Contrast (ICD-10-PCS; 2018-12-30)
PROC: 4A023N7 Measurement of Cardiac Sampling and Pressure, Left Heart, Percutaneous Approach (ICD-10-PCS; principal; 2018-12-30 08:45)
DX: I25.110 Atherosclerotic heart disease of native coronary artery with unstable angina pectoris (principal); I25.82 Chronic total occlusion of coronary artery; N40.0 Benign prostatic hyperplasia without lower urinary tract symptoms; K21.9 Gastro-esophageal reflux disease without esophagitis; I08.3 Combined rheumatic disorders of mitral, aortic and tricuspid valves; I10 Essential (primary) hypertension; E78.5 Hyperlipidemia, unspecified; I45.10 Unspecified right bundle-branch block; M17.0 Bilateral primary osteoarthritis of knee; Z79.82 Long term (current) use of aspirin; Z79.899 Other long term (current) drug therapy; Z95.1 Presence of aortocoronary bypass graft; Z95.5 Presence of coronary angioplasty implant and graft; Z87.891 Personal history of nicotine dependence
CPT/HCPCS: 36415; 71046; 78452; 80053; 80061; 82550; 82553; 83735; 83880; 84443; 84484; 85025; 85610; 85730; 93005; 93017; 93306; 93459; 99285

== ENCOUNTER → 2019-02-26 | Outpatient (CLI) | payer MEDICARE ==
[2019-02-26 10:20] LABS: Basophils # (A) 0.1 k/uL (0-0.2); Basophils % (A) 1 %; Eosinophils # (A) 0.1 k/uL (0-0.7); Eosinophils % (A) 1 %; HCT 44.9 % (39.0-53.0); HGB 14.9 gm/dL (13.0-17.5); Lymphocytes # (A) 1.6 k/uL (1.0-4.8); Lymphocytes % (A) 23 %; MCH 30.9 pg (25.0-35.0); MCHC 33.2 g/dL (31.0-37.0); MCV 92.8 fL (80.0-100.0); Mean Platelet Volume 7.6; Monocytes # (A) 0.5 k/uL (0-1.0); Monocytes % (A) 8 %; Neutrophils # (A) 4.6 k/uL (1.3-7.7); Neutrophils % (A) 65 %; Platelet Count 180 k/uL (150-450); RBC 4.84 m/uL (4.30-5.90); RDW 12.7 % (11.5-15.5); WBC 7.1 k/uL (3.8-10.6)
[2019-02-26 16:31] LABS: African American GFR (CKD) 77.3 (60.0-200.0); Albumin 4.5 g/dL (3.80-4.90); Anion Gap 8.2 mmol/L (4.00-12.00); BUN/Creat Ratio 16.36 Ratio (12.00-20.00); Calcium 9.6 mg/dL (8.7-10.3); Carbon Dioxide 27.8 mmol/L (21.6-31.8); Potassium 4.1 mmol/L (3.5-5.5)
[2019-02-26 18:44] LABS: Hemoglobin A1C 5.7 % (4.0-6.0)
== END | disposition home or self-care (01) ==
LOC: LABWHC1 08:59
PROVIDERS: ATTEND Orthopaedic Surgery
DX: Z13.1 Encounter for screening for diabetes mellitus (principal); Z01.810 Encounter for preprocedural cardiovascular examination; Z01.812 Encounter for preprocedural laboratory examination
CPT/HCPCS: 36415; 80048; 82040; 83036; 85025; 87070; 93005

== ENCOUNTER → 2019-09-06 | Outpatient (CLI) | payer MEDICARE ==
[2019-09-07 05:20] LABS: Chol/HDL Ratio 2.83; LDL Cholesterol,Calculated 58.2 mg/dL (0.0-131.0); VLDL Calculation 18.8 mg/dL (5.00-40.00)
== END | disposition home or self-care (01) ==
LOC: LABWHC1 09:07
PROVIDERS: ATTEND Nurse Practitioner Adult Health
DX: E78.2 Mixed hyperlipidemia (principal)
CPT/HCPCS: 36415; 80061; 84450; 84460

== ENCOUNTER → 2020-03-17 | Outpatient (CLI) | payer MEDICARE ==
[2020-03-17 10:25] LABS: Basophils # (A) 0.1 k/uL (0-0.2); Basophils % (A) 1 %; Eosinophils # (A) 0.1 k/uL (0-0.7); Eosinophils % (A) 2 %; HCT 46.2 % (39.0-53.0); HGB 14.6 gm/dL (13.0-17.5); Lymphocytes # (A) 1.6 k/uL (1.0-4.8); Lymphocytes % (A) 21 %; MCH 29.5 pg (25.0-35.0); MCHC 31.6 g/dL (31.0-37.0); MCV 93.3 fL (80.0-100.0); Mean Platelet Volume 8.3; Monocytes # (A) 0.6 k/uL (0-1.0); Monocytes % (A) 7 %; Neutrophils # (A) 5.2 k/uL (1.3-7.7); Neutrophils % (A) 68 %; Platelet Count 202 k/uL (150-450); RBC 4.95 m/uL (4.30-5.90); RDW 12.8 % (11.5-15.5); WBC 7.7 k/uL (3.8-10.6)
[2020-03-17 16:22] LABS: African American GFR (CKD) 86.2 (60.0-200.0); Albumin 4.3 g/dL (3.80-4.90); Albumin/Globulin Ratio 1.95 (1.60-3.17); Anion Gap 6.3 mmol/L (4.00-12.00); Calcium 9.3 mg/dL (8.7-10.3); Carbon Dioxide 23.7 mmol/L (21.6-31.8); Chol/HDL Ratio 2.39; Globulin 2.2 g/dL (1.6-3.3); Non-African American GFR(CKD) 74.3 (60.0-200.0); Potassium 4.4 mmol/L (3.5-5.5); Total Bilirubin 0.7 mg/dL (0.2-1.2); Total Protein 6.5 g/dL (6.2-8.2)
[2020-03-17 16:31] LABS: T4, Free (Free Thyroxine) 1.2 ng/dL (0.80-1.80)
== END | disposition home or self-care (01) ==
LOC: LABWHC1 08:57
PROVIDERS: ATTEND Family Medicine
DX: I10 Essential (primary) hypertension (principal); Z12.5 Encounter for screening for malignant neoplasm of prostate; E78.2 Mixed hyperlipidemia
CPT/HCPCS: 36415; 80053; 80061; 84153; 84439; 84443; 85025

== ENCOUNTER → 2020-09-09 | Outpatient (CLI) | payer MEDICARE ==
[2020-09-09 15:38] LABS: Chol/HDL Ratio 2.55; LDL Cholesterol,Calculated 47.6 mg/dL (0.0-131.0); VLDL Calculation 20.4 mg/dL (5.00-40.00)
== END | disposition home or self-care (01) ==
LOC: LABWHC1 08:11
PROVIDERS: ATTEND Nurse Practitioner Adult Health
DX: E78.2 Mixed hyperlipidemia (principal)
CPT/HCPCS: 36415; 80061; 84450; 84460

== ENCOUNTER → 2021-02-23 | Outpatient (CLI) | payer MEDICARE ==
[2021-02-23 15:49] LABS: African American GFR (CKD) 76.2 (60.0-200.0); Albumin 4.3 g/dL (3.80-4.90); Albumin/Globulin Ratio 1.95 (1.60-3.17); Anion Gap 6.1 mmol/L (4.00-12.00); BUN/Creat Ratio 17.27 Ratio (12.00-20.00); Calcium 9.5 mg/dL (8.7-10.3); Carbon Dioxide 27.9 mmol/L (21.6-31.8); Chol/HDL Ratio 2.67; Globulin 2.2 g/dL (1.6-3.3); LDL Cholesterol,Calculated 55.6 mg/dL (0.0-131.0); Non-African American GFR(CKD) 65.8 (60.0-200.0); Potassium 4.9 mmol/L (3.5-5.5); Total Bilirubin 0.7 mg/dL (0.2-1.2); Total Protein 6.5 g/dL (6.2-8.2); VLDL Calculation 16.4 mg/dL (5.00-40.00)
== END | disposition home or self-care (01) ==
LOC: LABWHC1 07:57
PROVIDERS: ATTEND Internal Medicine Interventional Cardiology
DX: E78.2 Mixed hyperlipidemia (principal)
CPT/HCPCS: 36415; 80053; 80061

== ENCOUNTER → 2021-08-21 | Outpatient (CLI) | payer MEDICARE ==
[2021-08-21 17:04] LABS: Chol/HDL Ratio 2.27 Ratio; HDL Cholesterol 50.2 mg/dL (40.00-60.00); LDL Cholesterol,Calculated 45.2 mg/dL (0.0-131.0); Triglycerides 93.2 mg/dL (0.00-149.00); VLDL Calculation 18.64 mg/dL (5.00-40.00)
== END | disposition home or self-care (01) ==
LOC: LABWHC1 09:25
PROVIDERS: ATTEND Internal Medicine Interventional Cardiology
DX: E78.2 Mixed hyperlipidemia (principal)
CPT/HCPCS: 36415; 80061; 84450; 84460

== ENCOUNTER → 2022-03-02 | Outpatient (CLI) | payer MEDICARE ==
[2022-03-02 15:40] LABS: ALT 20 U/L (10-49); AST 22 U/L (14-35); African American GFR (CKD) 72.5 (60.0-200.0); Albumin 4.2 g/dL (3.8-4.9); Albumin/Globulin Ratio 1.84 (1.60-3.17); Alkaline Phosphatase 92 U/L (41-126); BUN/Creat Ratio 17.11 Ratio (12.00-20.00); Blood Urea Nitrogen 19.5 mg/dL (9.0-27.0); Calcium 9.1 mg/dL (8.7-10.3); Carbon Dioxide 25.8 mmol/L (20.0-27.5); Chloride 106 mmol/L (96-109); Chol/HDL Ratio 2.42 Ratio; Globulin 2.3 g/dL (1.6-3.3); Glucose 106 mg/dL (70-110); LDL Cholesterol,Calculated 49.5 mg/dL (0.0-131.0); Non-African American GFR(CKD) 62.6 (60.0-200.0); Potassium 4.5 mmol/L (3.5-5.5); Sodium 141 mmol/L (135-145); Total Protein 6.4 g/dL (6.2-8.2); VLDL Calculation 15.72 mg/dL (5.00-40.00)
== END | disposition home or self-care (01) ==
LOC: LABWHC1 08:09
PROVIDERS: ATTEND Internal Medicine Interventional Cardiology
DX: E78.2 Mixed hyperlipidemia (principal)
CPT/HCPCS: 36415; 80053; 80061

== ENCOUNTER → 2022-08-16 | Outpatient (CLI) | payer MEDICARE ==
[2022-08-16 14:31] LABS: ALT 29 U/L (10-49); AST 24 U/L (14-35); Chol/HDL Ratio 2.45 Ratio; LDL Cholesterol,Calculated 50.1 mg/dL (0.0-131.0); VLDL Calculation 19.18 mg/dL (5.00-40.00)
== END | disposition home or self-care (01) ==
LOC: LABWHC1 09:06
PROVIDERS: ATTEND Internal Medicine Interventional Cardiology
DX: E78.2 Mixed hyperlipidemia (principal)
CPT/HCPCS: 36415; 80061; 84450; 84460

== ENCOUNTER 2023-03-10 12:35 | Inpatient (IN) | payer MEDICARE ==
[2023-03-10] MEDS ORDERED: ASPIRIN 81 MG PO STA (13:09)
[2023-03-10] MEDS ORDERED: NITROGLYCERIN OINT 1 INCH/GM PACKET TOPICAL STA (13:09)
--- NOTE | 2023-03-10 13:15 | ED ---
General Adult HPI - General Chief complaint: Chest Pain Stated complaint: chest pain Time Seen by Provider: 03/10/23 12:45 Source: patient, family, RN notes reviewed, old records reviewed Mode of arrival: wheelchair - History of Present Illness Initial comments: This is a 77-year-old male who presents emergency Department complaining of chest pain this morning at 6:00 last 3-4 hours. Patient states took nitroglycerin it seemed to take away the pain. Patient states she's had bypass surgery in the past he has high blood pressure high cholesterol. Patient states the pain is morning made him short of breath and sweaty and had pain radiating down both arms. Patient states currently he has no symptoms at all. Patient denies any swelling to the legs or calf tenderness. Patient denies any abdominal pain patient denies nausea vomiting diarrhea per patient denies any patient denies numbness weakness. - Related Data Home Medications Medication Instructions Recorded Confirmed Aspirin EC [Ecotrin Low Dose] 81 mg PO DAILY 12/05/14 03/10/23 lisinopriL [Zestril] 5 mg PO DAILY 12/05/14 03/10/23 Tamsulosin [Flomax] 0.4 mg PO HS 12/28/18 03/10/23 Atorvastatin Calcium [Lipitor] 40 mg PO HS 03/10/23 03/10/23 Previous Rx's Medication Instructions Recorded Isosorbide Mononitrate ER [Imdur] 30 mg PO DAILY #30 tab.er.24h 12/30/18 Allergies Allergy/AdvReac Type Severity Reaction Status Date / Time No Known Allergies Allergy Verified 03/10/23 14:41 Review of Systems ROS Statement: Those systems with pertinent positive or pertinent negative responses have been documented in the HPI. ROS Other: All systems not noted in ROS Statement are negative. Past Medical History Past Medical History: Coronary Artery Disease (CAD), GERD/Reflux, Hyperlipidemia, Hypertension Additional Past Medical History / Comment(s): HX OF FX RT ANKLE X2, VOCAL CORD POLYPS, STATES VOICE IS RASPY. History of Any Multi-Drug Resistant Organisms: None Reported Past Surgical History: Coronary Bypass/CABG, Heart Catheterization With Stent Additional Past Surgical History / Comment(s): LUMP REMOVED UNDER RIGHT EAR, VOCAL CORD POLYPS REMOVED (2011),. CABG - double (12/2011) Past Anesthesia/Blood Transfusion Reactions: No Reported Reaction Date of Last Stent Placement:: 2004 Past Psychological History: No Psychological Hx Reported Smoking Status: Never smoker Past Alcohol Use History: Rare Past Drug Use History: None Reported - Past Family History Father Additional Family Medical History / Comment(s): killed by train Mother Additional Family Medical History / Comment(s): killed by train General Exam - General Exam Comments Initial Comments: GENERAL: Patient is well-developed and well-nourished. Patient is nontoxic and well- hydrated and is in no acute distress. ENT: Neck is soft and supple. No significant lymphadenopathy is noted. Oropharynx is clear. Moist mucous membranes. Neck has full range of motion without eliciting any pain. EYES: The sclera were anicteric and conjunctiva were pink and moist. Extraocular movements were intact and pupils were equal round and reactive to light. Eyelids were unremarkable. PULMONARY: Unlabored respirations. Good breath sounds bilaterally. No audible rales rhonchi or wheezing was noted. CARDIOVASCULAR: There is a regular rate and rhythm without any murmurs gallops or rubs. ABDOMEN: Soft and nontender with normal bowel sounds. SKIN: Skin is clear with no lesions or rashes and otherwise unremarkable. NEUROLOGIC: Patient is alert and oriented x3. Cranial nerves II through XII are grossly intact. Motor and sensory are also intact. Normal speech, volume and content. Symmetrical smile. MUSCULOSKELETAL: Normal extremities with adequate strength and full range of motion. LYMPHATICS: No significant lymphadenopathy is noted PSYCHIATRIC: Normal psychiatric evaluation. Course Vital Signs 03/10/23 03/10/23 03/10/23 12:40 13:47 15:27 Temperature 97.6 F 97.6 F Pulse Rate 95 85 73 Respiratory 18 20 18 Rate Blood Pressure 122/67 121/72 134/75 O2 Sat by Pulse 98 97 99 Oximetry Medical Decision Making - Medical Decision Making EKG was interpreted by myself shows a sinus rhythm at 94 bpm TX interval 179 dresses under 26 QT interval 340 QTC is 392. Patient's EKG shows right bundle branch block. Patient does have some ST segment depression in V2 and V3 that w as not seen her before. Was pt. sent in by a medical professional or institution (, PA, SCRAP PREPARER, urgent care, hospital, or residential...) When possible be specific @ -No Did you speak to anyone other than the patient for history (EMS, parent, family, police, friend...)? What history was obtained from this source @ -No Did you review nursing and triage notes (agree or disagree)? Why? @ -I reviewed and agree with nursing and triage notes Were old charts reviewed (outside hosp., previous admission, EMS record, old EKG, old radiological studies, urgent care reports/EKG's, residential records)? Report findings @ -I reviewed prior lab work from prior charts prior EKGs in this patient. Differential Diagnosis (chest pain, altered mental status, abdominal pain women, abdominal pain men, vaginal bleeding, weakness, fever, dyspnea, syncope, headache, dizziness, GI bleed, back pain, seizure, CVA, palpatations, mental health, musculoskeletal)? @ -Differential Chest Pain: Stable Angina, Unstable Angina, STEMI, NSTEMI Aortic Dissection, Pneumothorax, Musculoskeletal, Esophageal Spasm GERD, Cholecystitis, Pancreatitis, Zoster, this is not meant to be an all-inclusive list. EKG interpreted by me (3pts min.). @ -As above X-rays interpreted by me (1pt min.). @ -Chest x-ray was interpreted by myself I see no acute abnormality. CT interpreted by me (1pt min.). @ -None done U/S interpreted by me (1pt. min.). @ -None done What testing was considered but not performed or refused? (CT, X-rays, U/S, labs)? Why? @ -None What meds were considered but not given or refused? Why? @ -None Did you discuss the management of the patient with other professionals (professionals i.e. , PA, SCRAP PREPARER, lab, RT, psych nurse, social work assistant, tracer lathe set up operator, teacher, air force senior officer, family preservation caseworker)? Give summary @ -I spoke with some physicians agreed to admit the patient. I spoke with Dr. Pradhan about the patient. Was smoking cessation discussed for >3mins.? @ -No Was critical care preformed (if so, how long)? @ -35 minutes Were there social determinants of health that impacted care today? How? (Homelessness, low income, unemployed, alcoholism, drug addiction, transportation, low edu. Level, literacy, decrease access to med. care, snf, rehab)? @ -No Was there de-escalation of care discussed even if they declined (Discuss DNR or withdrawal of care, Hospice)? DNR status @ -No What co-morbidities impacted this encounter? (DM, HTN, Smoking, COPD, CAD, Cancer, CVA, ARF, Chemo, Hep., AIDS, mental health diagnosis, sleep apnea, morbid obesity)? @ -High blood pressure and high cholesterol and coronary artery disease Was patient admitted / discharged? Hospital course, mention meds given and route, prescriptions, significant lab abnormalities, going to OR and other pertinent info. @ -Patient had a non-STEMI with a troponin of 0.167. Patient was started on heparin. Patient will get Lipitor. I spoke with cardiology and I spoke with sounds physician's. I wrote admitting orders Undiagnosed new problem with uncertain prognosis? @ -No Drug Therapy requiring intensive monitoring for toxicity (Heparin, Nitro, Insulin, Cardizem)? @ -No Were any procedures done? @ -No Diagnosis/symptom? @ -Non-STEMI Acute, or Chronic, or Acute on Chronic? @ -Acute Uncomplicated (without systemic symptoms) or Complicated (systemic symptoms)? @ -Complicated Side effects of treatment? @ -No Exacerbation, Progression, or Severe Exacerbation? @ -No Poses a threat to life or bodily function? How? (Chest pain, [place], PR, pneumonia, PE, COPD, DKA, ARF, appy, cholecystitis, CVA, Diverticulitis, Homicidal, Suicidal, threat to staff... and all critical care pts) @ -Yes this could lead to poor perfusion and hypoxia and end organ dysfunction - Lab Data Result diagrams: 03/10/23 13:37 03/10/23 13:37 Lab Results 03/10/23 03/10/23 03/10/23 Range/Units 13:37 13:37 13:37 WBC 8.1 (3.8-10.6) k/uL RBC 4.82 (4.30-5.90) m/uL Hgb 15.0 (13.0-17.5) gm/dL Hct 44.2 (39.0-53.0) % MCV 91.7 (80.0-100.0) fL MCH 31.1 (25.0-35.0) pg MCHC 33.9 (31.0-37.0) g/dL RDW 12.8 (11.5-15.5) % Plt Count 211 (150-450) k/uL MPV 9.0 Neutrophils % 69 % Lymphocytes % 22 % Monocytes % 6 % Eosinophils % 1 % Basophils % 0 % Neutrophils # 5.6 (1.3-7.7) k/uL Lymphocytes # 1.8 (1.0-4.8) k/uL Monocytes # 0.5 (0-1.0) k/uL Eosinophils # 0.0 (0-0.7) k/uL Basophils # 0.0 (0-0.2) k/uL PT 10.1 (9.0-12.0) sec INR 0.9 (<1.2) APTT 22.9 (22.0-30.0) sec Sodium 138 (137-145) mmol/L Potassium 4.2 (3.5-5.1) mmol/L Chloride 101 (98-107) mmol/L Carbon Dioxide 27 (22-30) mmol/L Anion Gap 10 mmol/L BUN 21 H (9-20) mg/dL Creatinine 0.93 (0.66-1.25) mg/dL Est GFR (CKD-EPI)AfAm >90 (>60 ml/min/1.73 sqM) Est GFR (CKD-EPI)NonAf 80 (>60 ml/min/1.73 sqM) Glucose 125 H (74-99) mg/dL Calcium 9.2 (8.4-10.2) mg/dL Magnesium 2.3 (1.6-2.3) mg/dL Total Bilirubin 1.4 H (0.2-1.3) mg/dL AST 27 (17-59) U/L ALT 26 (4-49) U/L Alkaline Phosphatase 86 (38-126) U/L Troponin I (0.000-0.034) ng/mL Total Protein 7.4 (6.3-8.2) g/dL Albumin 4.4 (3.5-5.0) g/dL 03/10/23 Range/Units 13:37 WBC (3.8-10.6) k/uL RBC (4.30-5.90) m/uL Hgb (13.0-17.5) gm/dL Hct (39.0-53.0) % MCV (80.0-100.0) fL MCH (25.0-35.0) pg MCHC (31.0-37.0) g/dL RDW (11.5-15.5) % Plt Count (150-450) k/uL MPV Neutrophils % % Lymphocytes % % Monocytes % % Eosinophils % % Basophils % % Neutrophils # (1.3-7.7) k/uL Lymphocytes # (1.0-4.8) k/uL Monocytes # (0-1.0) k/uL Eosinophils # (0-0.7) k/uL Basophils # (0-0.2) k/uL PT (9.0-12.0) sec INR (<1.2) APTT (22.0-30.0) sec Sodium (137-145) mmol/L Potassium (3.5-5.1) mmol/L Chloride (98-107) mmol/L Carbon Dioxide (22-30) mmol/L Anion Gap mmol/L BUN (9-20) mg/dL Creatinine (0.66-1.25) mg/dL Est GFR (CKD-EPI)AfAm (>60 ml/min/1.73 sqM) Est GFR (CKD-EPI)NonAf (>60 ml/min/1.73 sqM) Glucose (74-99) mg/dL Calcium (8.4-10.2) mg/dL Magnesium (1.6-2.3) mg/dL Total Bilirubin (0.2-1.3) mg/dL AST (17-59) U/L ALT (4-49) U/L Alkaline Phosphatase (38-126) U/L Troponin I 0.168 H* (0.000-0.034) ng/mL Total Protein (6.3-8.2) g/dL Albumin (3.5-5.0) g/dL Disposition Clinical Impression: Acute non-ST elevation myocardial infarction (NSTEMI) Disposition: ADMITTED IP TO THIS HOSP Referrals: Danish Tamez MD [Primary Care Provider] - 1-2 days Time of Disposition: 15:59
[2023-03-10 14:05] LABS: INR 0.9 (<1.2); Partial Thromboplastin Time 22.9 sec (22.0-30.0); Prothrombin Time 10.1 sec (9.0-12.0)
[2023-03-10 14:11] LABS: Basophils % (A) 0 %; Eosinophils % (A) 1 %; HCT 44.2 % (39.0-53.0); Lymphocytes # (A) 1.8 k/uL (1.0-4.8); Lymphocytes % (A) 22 %; MCH 31.1 pg (25.0-35.0); MCHC 33.9 g/dL (31.0-37.0); MCV 91.7 fL (80.0-100.0); Monocytes # (A) 0.5 k/uL (0-1.0); Monocytes % (A) 6 %; Neutrophils # (A) 5.6 k/uL (1.3-7.7); Neutrophils % (A) 69 %; Platelet Count 211 k/uL (150-450); RBC 4.82 m/uL (4.30-5.90); RDW 12.8 % (11.5-15.5); WBC 8.1 k/uL (3.8-10.6)
[2023-03-10 14:18] LABS: ALT 26 U/L (4-49); AST 27 U/L (17-59); African American GFR (CKD) >90 (>60 ml/min/1.73 sqM); Albumin 4.4 g/dL (3.5-5.0); Alkaline Phosphatase 86 U/L (38-126); Anion Gap 10 mmol/L; Blood Urea Nitrogen 21 mg/dL (9-20); Calcium 9.2 mg/dL (8.4-10.2); Carbon Dioxide 27 mmol/L (22-30); Chloride 101 mmol/L (98-107); Glucose 125 mg/dL (74-99); Magnesium 2.3 mg/dL (1.6-2.3); Non-African American GFR(CKD) 80 (>60 ml/min/1.73 sqM); Potassium 4.2 mmol/L (3.5-5.1); Sodium 138 mmol/L (137-145); Total Bilirubin 1.4 mg/dL (0.2-1.3); Total Protein 7.4 g/dL (6.3-8.2)
--- NOTE | 2023-03-10 15:29 | XR ---
EXAMINATION TYPE: XR chest 2V DATE OF EXAM: 03/10/2023 COMPARISON: 12/28/2018 TECHNIQUE: PA and lateral views submitted. HISTORY: Chest pain FINDINGS: The lungs are clear and there is no pneumothorax, pleural effusion, or focal pneumonia. Heart size normal and no overt failure. Osseous structures demonstrate hypertrophic and degenerative changes of the spine. Postsurgical changes overlying the mediastinum. IMPRESSION: 1. No acute process.
[2023-03-10] MEDS ORDERED: HEPARIN SODIUM 1,000 UN/ML (10ML VL) IV ONE (15:34)
[2023-03-10] MEDS ORDERED: HEPARIN SOD,PORK IN 0.45% NACL 25,000 UNIT in 0.45% NACL 1 250ML.BAG IV SCH (15:45)
[2023-03-10] MEDS ORDERED: NITROGLYCERIN SL TABS 0.4 MG TAB SUBLINGUAL PRN (15:59)
[2023-03-10] MEDS: NITROGLYCERIN OINT 1 INCH/GM PACKET TOPICAL SCH (17:50)
--- NOTE | 2023-03-10 18:35 | P.HPIM ---
History of Present Illness H&P Date: 03/10/23 Patient is a 77-year-old male with PMH of CAD post stent and CABG, hypertension, BPH that presents the ED for chest pain. This reports chest pain started this morning on he was in bed around 6 AM. His chest pain was midsternal, pressure- like in nature radiating to both of his arms. He also reported pain in his back. His chest pain was associated with diaphoresis and nausea. He took nitroglycerin tablets which improved his pain. He was able to call his tobacco checkout clerk who recommended that he come to the ED. He currently reports some mild pressure in his chest. He denies any headache, lower extremity edema, nausea or vomiting, fever or chills, cough, shortness of breath, palpitations, changes in urination or bowel habits. No changes in appetite or weight. He denies any dizziness, numbness/weakness/tingling of extremities. In the ED, his vital signs were stable. CBC was unremarkable. Coagulation panel within normal limits. CMP showed be on of 21, glucose 125, total bilirubin 1.4. Troponin was elevated at 0.168 with EKG showing sinus rhythm with ventricular rate of 94 and right bundle branch block. Chest x-ray was negative for acute process. Patient was admitted for further management of symptoms. Pertinent positives and negatives as discussed in HPI, a complete review of systems was performed and all other systems are negative. General: non toxic, no distress, appears at stated age Derm: warm, dry Head: atraumatic, normocephalic, symmetric Eyes: EOMI, no lid lag, anicteric sclera Cardiovascular: S1S2 reg, no murmur Lungs: CTA bilateral, no rhonchi, no rales , no accessory muscle use Abdominal: soft, nontender to palpation, no guarding, no appreciable organom egaly Ext: no gross muscle atrophy, no edema, no contractures Neuro: no focal neuro deficits Psych: Alert, oriented, appropriate affect Non-ST elevation IL Chronic conditions: CAD post stent and CABG, hypertension, BPH Based on my assessment of this patient, this patient meets a high complexity level of care. Patient has an acute diagnosis of non-ST elevation IL that poses a threat to life or bodily function. He is noted to have elevated troponin of 0.168. Trend troponin/EKG to rule out acute coronary syndrome. Obtain echocardiogram. Telemetry monitoring. Continue aspirin 81 mg by mouth daily, Lipitor 40 as well mouth at bedtime. Patient initiated on heparin drip at 10.807 units per kilogram per hour. Cardiology has been consulted for further management of this patient. Patient names his decision maker if he can't make decisions for himself. Patient would like to be full code. Heparin drip for DVT prophylaxis. I have reviewed the following consultants intern notes: None. I have reviewed the results of the following tests: CBC was unremarkable. Coagulation panel within normal limits. CMP showed be on of 21, glucose 125, total bilirubin 1.4. I have ordered the following tests: Troponin. Echocardiogram. I have discussed the care of this patient with the following independent historian: None. I have independently interpreted the following test below: EKG showed sinus rhythm with ventricular rate of 94 and right bundle branch block. Chest x-ray was negative for acute process. I have discussed the management of this patient with the following physician: The case was discussed with the ED physician and decision made to admit the patient for non-ST elevation IL. This patient has a high risk of morbidity due to the following reasons: Patient is currently on heparin drip for treatment of non-ST elevation IL that requires intensive monitoring for bleeding with daily aPTT. Past Medical History Past Medical History: Coronary Artery Disease (CAD), GERD/Reflux, Hyperlipidemia, Hypertension Additional Past Medical History / Comment(s): HX OF FX RT ANKLE X2, VOCAL CORD POLYPS, STATES VOICE IS RASPY. History of Any Multi-Drug Resistant Organisms: None Reported Past Surgical History: Coronary Bypass/CABG, Heart Catheterization With Stent Additional Past Surgical History / Comment(s): LUMP REMOVED UNDER RIGHT EAR, V OCAL CORD POLYPS REMOVED (2011),. CABG - double (12/2011) Past Anesthesia/Blood Transfusion Reactions: No Reported Reaction Date of Last Stent Placement:: 2004 Past Psychological History: No Psychological Hx Reported Smoking Status: Never smoker Past Alcohol Use History: Rare Past Drug Use History: None Reported - Past Family History Father Additional Family Medical History / Comment(s): killed by train Mother Additional Family Medical History / Comment(s): killed by train Medications and Allergies Home Medications Medication Instructions Recorded Confirmed Type Aspirin EC [Ecotrin Low Dose] 81 mg PO DAILY 12/05/14 03/10/23 History lisinopriL [Zestril] 5 mg PO DAILY 12/05/14 03/10/23 History Tamsulosin [Flomax] 0.4 mg PO HS 12/28/18 03/10/23 History Isosorbide Mononitrate ER [Imdur] 30 mg PO DAILY #30 tab.er.24h 12/30/18 03/10/23 Rx Atorvastatin Calcium [Lipitor] 40 mg PO HS 03/10/23 03/10/23 History Allergies Allergy/AdvReac Type Severity Reaction Status Date / Time No Known Allergies Allergy Verified 03/10/23 14:41 Physical Exam Vitals: Vital Signs Temp Pulse Resp BP Pulse Ox 03/10/23 17:48 68 18 133/71 97 03/10/23 16:00 74 20 120/72 98 03/10/23 15:27 73 18 134/75 99 03/10/23 13:47 97.6 F 85 20 121/72 97 03/10/23 12:40 97.6 F 95 18 122/67 98 Intake and Output 03/10/23 03/10/23 03/10/23 06:59 14:59 22:59 Other: Weight 92.533 kg Results CBC & Chem 7: 03/10/23 13:37 03/10/23 13:37 Labs: Abnormal Lab Results - Last 24 Hours (Table) 03/10/23 03/10/23 Range/Units 13:37 13:37 BUN 21 H (9-20) mg/dL Glucose 125 H (74-99) mg/dL Total Bilirubin 1.4 H (0.2-1.3) mg/dL Troponin I 0.168 H* (0.000-0.034) ng/mL
[2023-03-10] MEDS: TAMSULOSIN 0.4 MG CAP.ER.24H PO SCH (21:12)
[2023-03-10] MEDS: ATORVASTATIN 40 MG TAB PO SCH (21:12)
[2023-03-11] MEDS: NITROGLYCERIN OINT 1 INCH/GM PACKET TOPICAL SCH ×3 (01:09→12:20)
[2023-03-11] MEDS: ASPIRIN 81 MG PO SCH (08:53)
[2023-03-11] MEDS: lisinopriL 5 MG TAB PO SCH (08:53)
[2023-03-11] MEDS ORDERED: ISOSORBIDE MONONITRATE ER 30 MG TAB.ER.24H PO SCH (09:00)
[2023-03-11] MEDS ORDERED: ATORVASTATIN 80 MG TAB PO SCH (09:00)
[2023-03-11] MEDS ORDERED: ASPIRIN 325 MG TAB PO SCH (09:00)
[2023-03-11] MEDS ORDERED: ALPRAZolam 0.5 MG TAB PO PRN (10:33)
[2023-03-11] MEDS ORDERED: ASPIRIN 325 MG TAB PO STA (10:33)
[2023-03-11] MEDS ORDERED: ALPRAZolam 0.25 MG TAB PO PRN (10:33)
[2023-03-11] MEDS ORDERED: ATORVASTATIN 80 MG TAB PO STA (10:33)
[2023-03-11] MEDS: SODIUM CHLORIDE 0.9% 1,000 ML in EMPTY BAG 1 BAG IV SCH ×2 (10:45→23:53)
--- NOTE | 2023-03-11 10:55 | CONS ---
CONSULTATION CHIEF COMPLAINT: Chest pain. HISTORY OF PRESENT ILLNESS: Landry is a 77-year-old gentleman with history of coronary artery disease status post bypass surgery in 2011 with JIMENEZ to LAD and venous graft to right coronary artery, who presented to hospital complaining of chest pain that was moderate to severe intensity at rest in the precordial area that radiated to both upper extremities. He came to hospital and had mild troponin elevation and Cardiology had been consulted for the same. The patient had a cardiac catheterization in 2019 that showed a totally occluded right coronary artery, patent JIMENEZ to LAD, patent venous graft to the right coronary artery. The [place] circumflex coronary artery is a nondominant vessel and is free of disease. He did not require any intervention at that time. An EKG on this admission revealed sinus rhythm, right bundle-branch block and nonspecific ST-T wave changes. Troponins are elevated at 0.1, 0.2, and 0.2. Creatinine is normal at 0.9 and hemoglobin is normal at 15. PAST MEDICAL HISTORY: Significant for coronary artery disease status post CABG, hypertension, and dyslipidemia. CURRENT MEDICATIONS: 1. Imdur 30 mg daily. 2. Lipitor 40 daily. 3. Aspirin. 4. Lisinopril 5. 5. Flomax. ALLERGIES: No known drug allergies. FAMILY HISTORY: Negative for premature coronary artery disease. SOCIAL HISTORY: Negative for smoking, EtOH abuse or drug abuse. REVIEW OF SYSTEMS: HEENT: Unremarkable. CARDIAC: As described above. RESPIRATORY: Negative. GI: negative. GENITOURINARY: Negative. ALLERGY/IMMUNOLOGY: Negative. SKIN: Negative. MUSCULOSKELETAL: Significant for arthritis. PSYCHOSOCIAL: Negative. DERM: Negative. CONSTITUTIONAL: Negative. ONCOLOGICAL: Negative. EXCELSIOR MACHINE TENDER: Negative. Rest of the system review is not relevant. PHYSICAL EXAMINATION: GENERAL: Comfortable at rest. VITAL SIGNS: Stable. NECK: There is no jugular venous distention. Carotid upstroke is normal. There is no bruit. CHEST: Reveals good air entry bilaterally. HEART: Reveals first and second heart sounds. No gallop, no murmur, no rub. ABDOMEN: Soft, nontender. EXTREMITIES: Did not reveal any edema. Peripheral pulses are felt. LABORATORY DATA: Labs show a hemoglobin of 15, platelet count is 211, potassium is 4.2, creatinine is 0.9. AST, ALT are within normal limits. Troponin is elevated. ASSESSMENT: 1. Acute iwe-DH-eoqgnmc elevation myocardial infarction. 2. Coronary artery disease, status post CABG. 3. Dyslipidemia. PLAN: I advised the patient to undergo cardiac catheterization. He had been explained of the risks, benefits, and alternatives. I will perform this later this morning. BRENDEN / CECELIA: [id number] /
[2023-03-11] MEDS ORDERED: IV FLUID CONTINUATION 1,000 ML IV ONE (11:03)
[2023-03-11] MEDS ORDERED: fentaNYL (PF) 50 MCG/ML 2 ML AMP ONE (11:09)
[2023-03-11] MEDS ORDERED: MIDAZOLAM 2 MG/2 ML VIAL IV ONE (11:18)
[2023-03-11] MEDS ORDERED: fentaNYL (PF) 50 MCG/ML 2 ML AMP IV ONE (11:18)
[2023-03-11] MEDS ORDERED: LIDOCAINE 1% INJ 10MG/ML (20 ML MDV) SQ ONE (11:21)
[2023-03-11] MEDS ORDERED: IOPAMIDOL-370 100ML BTL INJ ONE (11:46)
--- NOTE | 2023-03-11 11:54 | CA ---
Transthoracic Echo Report Name: Landry Gagnon Age: 77 Gender: M : 1945 Exam Date: 03/11/2023 10:10 Exam Location: [facility] Ht (in): 68 Wt (lb): 204 Ordering Physician: Hema Brooks MD Attending/Referring Phys: [facility] Director Libby Gonzales RDCS Procedure CPT: Indications: CP Cardiac Hx: Technical Quality: Good Contrast 1: Total Dose (mL): Contrast 2: Total Dose (mL): MEASUREMENTS (Male / Female) Normal Values 2D ECHO LV Diastolic Diameter PLAX 5.2 cm 4.2 - 5.9 / 3.9 - 5.3 cm LV Systolic Diameter PLAX 2.8 cm IVS Diastolic Thickness 1.0 cm 0.6 - 1.0 / 0.6 - 0.9 cm LVPW Diastolic Thickness 1.0 cm 0.6 - 1.0 / 0.6 - 0.9 cm LV Relative Wall Thickness 0.4 RV Internal Dim ED PLAX 3.5 cm LA Systolic Diameter LX 4.3 cm 3.0 - 4.0 / 2.7 - 3.8 cm LV Diastolic Volume MOD 4C 119.3 cm??? LV Systolic Volume MOD 4C 59.2 cm??? LV Ejection Fraction MOD 4C 50.4 % LV Diastolic Length 4C 8.9 cm LV Systolic Length 4C 7.3 cm LV Diastolic Volume MOD 2C 128.8 cm??? LV Systolic Volume MOD 2C 60.2 cm??? LV Ejection Fraction MOD 2C 53.3 % LV Diastolic Length 2C 8.5 cm LV Systolic Length 2C 6.6 cm LA Volume 59.9 cm??? 18 - 58 / 22 - 52 cm??? M-MODE Aortic Root Diameter MM 3.5 cm MV E Point Septal Separation 1.4 cm AV Cusp Separation MM 2.2 cm DOPPLER AV Peak Velocity 100.2 cm/s AV Peak Gradient 4.0 mmHg AI Peak Velocity 255.1 cm/s AI Peak Gradient 26.0 mmHg AI Pressure Half Time 576.9 ms MV Area PHT 3.3 cm??? Mitral E Point Velocity 98.2 cm/s Mitral A Point Velocity 90.7 cm/s Mitral E to A Ratio 1.1 MV Deceleration Time 230.9 ms MV E' Velocity 5.8 cm/s Mitral E to MV E' Ratio 16.8 TR Peak Velocity 223.7 cm/s TR Peak Gradient 20.0 mmHg Right Ventricular Systolic Press 24.2 mmHg FINDINGS Left Ventricle Left ventricular ejection fraction is estimated at 50-55 %. Left ventricular cavity size normal. Left ventricular wall thickness normal. Normal left ventricular wall motion. Right Ventricle Mild right ventricular dilatation. Right ventricular systolic pressure within normal limits. Right Atrium Normal right atrial size. Left Atrium Mildly increased left atrial diameter. Mildly increased left atrial volume. Mildly increased left atrial area. Mitral Valve Mitral valve thickened. Mild mitral annular calcification. Mild mitral regurgitation. Aortic Valve Trileaflet aortic valve. No aortic stenosis. Mild aortic regurgitation. Tricuspid Valve Structurally normal tricuspid valve. Mild tricuspid regurgitation. Pulmonic Valve Structurally normal pulmonic valve. Mild pulmonic regurgitation. Pericardium Normal pericardium. No pericardial effusion. Aorta Normal size aortic root and proximal ascending aorta. CONCLUSIONS Left ventricular ejection fraction 50-55% RVSP 24 Mild mitral regurgitation Mildly dilated left atrium Mild aortic regurgitation No pericardial effusion Previewed by: Dr. Aric Wilson DO (Electronically Signed) Final Date: 11 Mar 2023 11:53
[2023-03-11] MEDS ORDERED: RX INFO: IV CONTRAST WAS GIVEN 1 EACH MISC MISCELLANE PRN (13:11)
--- NOTE | 2023-03-11 14:49 | CC ---
CARDIAC CATHETERIZATION REPORT INDICATION: Unstable angina in a patient with known CAD status post prior bypass with JIMENEZ to LAD and venous graft to RCA. PROCEDURE NOTE: After obtaining informed consent, left heart catheterization and coronary angiogram were performed via the right femoral artery using standard Rocky catheters. The patient tolerated the procedure well without any obvious immediate complications. A femoral angiogram was performed, and Angio-Seal will be deployed for hemostasis. The patient received moderate conscious sedation. Total sedation time was 18 minutes. FINDINGS: HEMODYNAMICS: 1. Left ventricular end-diastolic pressure is 18 mm. There is no significant gradient across the aortic valve. 2. Left ventriculogram: Left ventriculogram is not performed. ANGIOGRAPHIC DATA: [place] coronary artery: Right coronary artery is a large dominant vessel that shows a long segment of 95% stenosis in its midportion. Left main coronary artery. The LAD is occluded right at its origin. Circumflex coronary artery shows a moderate atherosclerotic plaque in the ostial portion, but this was noted on the previous cardiac cath also. Selective injection of the bypass grafts, JIMENEZ to LAD appears patent. Venous graft to RCA appears patent. CONCLUSION: Severe 3-vessel coronary artery disease as described above with patent JIMENEZ to LAD and venous graft to the right coronary artery. I reviewed angiographic data with Dr. Wilson the on-call asbestos shingle inspector. The patient does have ostial stenosis. We do not have iFR catheters. It is possible the lesion is more significant than we see it angiographically, but it looks the same as it did last time. The plan at this stage is to treat him with optimal medical therapy and if he continues to have chest discomfort, consider angioplasty of the ostial circumflex coronary artery. I am going to discuss this with Dr. Velázquez, the patient's primary longitudinal float operator early next week. I will ambulate the patient today and see how he does, hopefully home over the next 48 hours. MMODL / IJN: [id number] /
--- NOTE | 2023-03-11 15:52 | P.PN ---
Subjective Progress Note Date: 03/11/23 Patient is a 77-year-old male with PMH of CAD post stent and CABG, hypertension, BPH that presents the ED for chest pain. This reports chest pain started this morning on he was in bed around 6 AM. His chest pain was midsternal, pressure- like in nature radiating to both of his arms. He also reported pain in his back. His chest pain was associated with diaphoresis and nausea. He took nitroglycerin tablets which improved his pain. He was able to call his dental director who recommended that he come to the ED. He currently reports some mild pressure in his chest. He denies any headache, lower extremity edema, nausea or vomiting, fever or chills, cough, shortness of breath, palpitations, changes in urination or bowel habits. No changes in appetite or weight. He denies any dizziness, numbness/weakness/tingling of extremities. In the ED, his vital signs were stable. CBC was unremarkable. Coagulation panel within normal limits. CMP showed be on of 21, glucose 125, total bilirubin 1.4. Troponin was elevated at 0.168 with EKG showing sinus rhythm with ventricular rate of 94 and right bundle branch block. Chest x-ray was negative for acute process. Patient was admitted for further management of symptoms. 03/11 Patient was seen and examined. He underwent cardiac cath which showed RCA 95% stenosis, occluded LAD, moderate atherosclerotic plaque in the ostial portion JIMENEZ to LAD. Patient reports no chest pain after his procedure. General: non toxic, no distress, appears at stated age Derm: warm, dry Head: atraumatic, normocephalic, symmetric Eyes: EOMI, no lid lag, anicteric sclera Cardiovascular: Good distal perfusion in all 4 extremities Lungs: no accessory muscle use Ext: no gross muscle atrophy, no edema, no contractures Neuro: no focal neuro deficits Psych: Alert, oriented, appropriate affect Non-ST elevation [place] Chronic conditions: CAD post stent and CABG, hypertension, BPH Based on my assessment of this patient, this patient meets a moderate complexity level of care. Patient has an acute diagnosis of non-ST elevation [place] that poses a threat to life or bodily function. He is noted to have elevated troponin of 0.168, 0.293, 0.233. Echocardiogram shows EF 50-55%. Status post cardiac cath which showed RCA 95% stenosis, occluded LAD, moderate atherosclerotic plaque in the ostial portion JIMENEZ to LAD. Telemetry monitoring. Continue aspirin 81 mg by mouth d aily, Lipitor 40 as well mouth at bedtime. Cardiology is on board. Patient names his decision maker if he can't make decisions for himself. Patient would like to be full code. Heparin SQ for DVT prophylaxis. I have reviewed the following outside sales consultant notes: None. I have reviewed the results of the following tests: APTT 59. Echocardiogram shows EF 50-55%. I have ordered the following tests: BMP. I have discussed the care of this patient with the following independent historian: None. I have independently interpreted the following test below: None. I have discussed the management of this patient with the following physician: None. Objective - Vital Signs Vital signs: Vital Signs Temp 98.4 F 03/10/23 23:08 Pulse 95 03/11/23 14:45 Resp 16 03/11/23 14:00 BP 121/63 03/11/23 14:45 Pulse Ox 96 03/11/23 14:45 FiO2 Intake & Output 03/10/23 03/11/23 03/11/23 18:59 06:59 18:59 Intake Total 170 100 Balance 170 100 Weight 92.533 kg 92.533 kg Intake: IV 100 Intake, IV Titration 50 Amount Heparin Sod,Pork in 0.45% 50 NaCl 25,000 unit In 0.45 % NaCl 1 250ml.bag @ 10. 807 UNITS/KG/HR 10 mls/hr IV .Q24H [facility] Rx#: [id number] Oral 120 Other: # Voids 2 1 - Labs CBC & Chem 7: 03/10/23 13:37 03/10/23 13:37 Labs: Abnormal Lab Results - Last 24 Hours (Table) 03/10/23 03/10/23 03/10/23 Range/Units 17:06 19:57 23:46 APTT 59.0 H (22.0-30.0) sec Troponin I 0.293 H* 0.233 H* (0.000-0.034) ng/mL
[2023-03-11] MEDS: METOPROLOL SUCCINATE (ER) 25 MG TAB.ER.24H PO SCH (17:26)
[2023-03-11 17:38] LABS: Chol/HDL Ratio 2.02 Ratio; LDL Cholesterol,Calculated 39.6 mg/dL (0.0-131.0); VLDL Calculation 13.44 mg/dL (5.00-40.00)
[2023-03-11] MEDS: TAMSULOSIN 0.4 MG CAP.ER.24H PO SCH (21:16)
[2023-03-11] MEDS: ATORVASTATIN 40 MG TAB PO SCH (21:16)
[2023-03-12] MEDS ORDERED: HEPARIN SODIUM,PORCINE 2,500 UNIT in SODIUM CHLORIDE 0.9% 250 ML IRRIGATION PRN (07:00)
[2023-03-12] MEDS ORDERED: HEPARIN SODIUM,PORCINE 10,000 UNIT in SODIUM CHLORIDE 0.9% 1,000 ML IRRIGATION PRN (07:00)
[2023-03-12] MEDS: SODIUM CHLORIDE 0.9% 1,000 ML in EMPTY BAG 1 BAG IV SCH ×2 (08:40→19:36)
[2023-03-12] MEDS: ASPIRIN 81 MG PO SCH (08:41)
[2023-03-12] MEDS: lisinopriL 5 MG TAB PO SCH (08:41)
[2023-03-12] MEDS: METOPROLOL SUCCINATE (ER) 25 MG TAB.ER.24H PO SCH (08:41)
[2023-03-12] MEDS: ISOSORBIDE MONONITRATE ER 30 MG TAB.ER.24H PO SCH (08:42)
[2023-03-12 09:05] LABS: African American GFR (CKD) >90 (>60 ml/min/1.73 sqM); Anion Gap 8 mmol/L; Blood Urea Nitrogen 15 mg/dL (9-20); Calcium 8.7 mg/dL (8.4-10.2); Carbon Dioxide 25 mmol/L (22-30); Chloride 106 mmol/L (98-107); Glucose 152 mg/dL (74-99); Non-African American GFR(CKD) 80 (>60 ml/min/1.73 sqM); Sodium 139 mmol/L (137-145)
[2023-03-12] MEDS: CLOPIDOGREL 75 MG TAB PO SCH (10:44)
--- NOTE | 2023-03-12 13:28 | P.PN ---
Subjective Progress Note Date: 03/12/23 Patient is a 77-year-old male with PMH of CAD post stent and CABG, hypertension, BPH that presents the ED for chest pain. This reports chest pain started this morning on he was in bed around 6 AM. His chest pain was midsternal, pressure- like in nature radiating to both of his arms. He also reported pain in his back. His chest pain was associated with diaphoresis and nausea. He took nitroglycerin tablets which improved his pain. He was able to call his capsule filling machine operator who recommended that he come to the ED. He currently reports some mild pressure in his chest. He denies any headache, lower extremity edema, nausea or vomiting, fever or chills, cough, shortness of breath, palpitations, changes in urination or bowel habits. No changes in appetite or weight. He denies any dizziness, numbness/weakness/tingling of extremities. In the ED, his vital signs were stable. CBC was unremarkable. Coagulation panel within normal limits. CMP showed be on of 21, glucose 125, total bilirubin 1.4. Troponin was elevated at 0.168 with EKG showing sinus rhythm with ventricular rate of 94 and right bundle branch block. Chest x-ray was negative for acute process. Patient was admitted for further management of symptoms. 03/11 Patient was seen and examined. He underwent cardiac cath which showed RCA 95% stenosis, occluded LAD, moderate atherosclerotic plaque in the ostial portion JIMENEZ to LAD. Patient reports no chest pain after his procedure. 03/12 Patient was seen and examined. Patient reports no chest pain. He has no complaints. General: non toxic, no distress, appears at stated age Derm: warm, dry Head: atraumatic, normocephalic, symmetric Eyes: EOMI, no lid lag, anicteric sclera Cardiovascular: Normal S1 S2. No m/r/g. Lungs: Clear to auscultation bilaterally Ext: no gross muscle atrophy, no edema, no contractures Neuro: no focal neuro deficits Psych: Alert, oriented, appropriate affect Non-ST elevation [place] Chronic conditions: CAD post stent and CABG, hypertension, BPH Based on my assessment of this patient, this patient meets a moderate complexity level of care. Patient has an acute diagnosis of non-ST elevation [place] that poses a threat to life or bodily function. He is noted to have elevated troponin of 0.168, 0.293, 0.233. Echocardiogram shows EF 50-55%. Status post cardiac cath which showed RCA 95% stenosis, occluded LAD, moderate atherosclerotic plaque in the ostial portion JIMENEZ to LAD. Telemetry monitoring. Continue aspirin 81 mg by mouth daily, Lipitor 40 as well mouth at bedtime. Cardiology would like to monitor the patient for 24-48H. Patient names his decision maker if he can't make decisions for himself. Patient would like to be full code. Heparin SQ for DVT prophylaxis. I have reviewed the following farm consultant notes: None. I have reviewed the results of the following tests: BMP shows glucose of 152. I have ordered the following tests: None. I have discussed the care of this patient with the following independent historian: None. I have independently interpreted the following test below: None. I have discussed the management of this patient with the following physician: None. Objective - Vital Signs Vital signs: Vital Signs Temp 97.4 F L 03/12/23 08:37 Pulse 75 03/12/23 11:37 Resp 18 03/12/23 11:37 BP 108/63 03/12/23 11:37 Pulse Ox 97 03/12/23 11:37 FiO2 Intake & Output 03/11/23 03/12/23 03/12/23 18:59 06:59 18:59 Intake Total 350 1465.33 236 Balance 350 1465.33 236 Intake: IV 100 Intake, IV Titration 925.33 Amount Sodium Chloride 0.9% 1, 925.33 000 ml In Empty Bag 1 bag @ 1 ML/KG/HR 92.533 mls/ hr IV .[id number] [facility] Rx#: [id number] Oral 250 540 236 Other: # Voids 1 - Labs CBC & Chem 7: 03/10/23 13:37 03/12/23 08:38 Labs: Abnormal Lab Results - Last 24 Hours (Table) 03/12/23 Range/Units 08:38 Glucose 152 H (74-99) mg/dL
--- NOTE | 2023-03-12 14:41 | P.PN ---
Subjective Progress Note Date: 03/12/23 This is Miguel Hernandez NP, I'm dictating on behalf of Dr. Pradhan's H&P and A&P. Patient was interviewed and examined. Patient is a pleasant 77-year-old male who presented to the hospital with chest pain and a NSTEMI. Patient underwent cardiac catheterization, which demonstrated 95% stenosis of the mid RCA, occluded LAD, moderate atherosclerotic plaque in the ostial portion of the circumflex, patent bypass grafts of JIMENEZ to LAD, RCA venous graft is also patent. Recommendation from interventional car diology was to maximize medical therapy, and if he continues to have chest discomfort, we'll consider angioplasty of the ostial circumflex coronary artery. Today the patient reports that he is feeling okay. He is not having any symptoms of chest pain, shortness of breath, dizziness, or diaphoresis. GENERAL: Well-appearing, well-nourished and in no acute distress. NECK: Supple without JVD or thyromegaly. LUNGS: Breath sounds clear to auscultation bilaterally. Respiration equal and unlabored. No wheezes, rales or rhonchi. HEART: Regular rate and rhythm without murmurs, rubs or gallops. S1 and S2 heard. EXTREMITIES: Normal range of motion, no edema. No clubbing or cyanosis. Peripheral pulses intact and strong. VITALS: Temp 97.4, pulse 76, respirations 18, blood pressure 143/73, O2 saturation 97% on room air TELEMETRY: Normal sinus rhythm LABS: Sodium 139, potassium 4.0, B1 15, creatinine 0.93, calcium 8.7 IMPRESSION: 1. Acute non-ST segment elevation myocardial infarction, status post catheterization 2. Coronary artery disease, status post CABG 3. Dyslipidemia PLAN: Start Plavix 75 mg daily. Start metoprolol 12.5 mg daily. Continue to monitor blood pressure. Further recommendations based on the patient's clinical course. Objective - Vital Signs Vital signs: Vital Signs Temp 97.4 F L 03/12/23 08:37 Pulse 75 03/12/23 13:47 Resp 18 03/12/23 13:47 BP 108/63 03/12/23 11:37 Pulse Ox 97 03/12/23 11:37 FiO2 Intake & Output 03/11/23 03/12/23 03/12/23 18:59 06:59 18:59 Intake Total 350 1465.33 236 Balance 350 1465.33 236 Intake: IV 100 Intake, IV Titration 925.33 Amount Sodium Chloride 0.9% 1, 925.33 000 ml In Empty Bag 1 bag @ 1 ML/KG/HR 92.533 mls/ hr IV .[id number] [facility] Rx#: [id number] Oral 250 540 236 Other: # Voids 1 - Labs CBC & Chem 7: 03/10/23 13:37 03/12/23 08:38 Labs: Abnormal Lab Results - Last 24 Hours (Table) 03/12/23 Range/Units 08:38 Glucose 152 H (74-99) mg/dL
[2023-03-12] MEDS: TAMSULOSIN 0.4 MG CAP.ER.24H PO SCH (19:49)
[2023-03-12] MEDS: ATORVASTATIN 40 MG TAB PO SCH (19:49)
[2023-03-13 08:56] VITALS: RESP 18; TEMP 97.7
[2023-03-13] MEDS: ISOSORBIDE MONONITRATE ER 30 MG TAB.ER.24H PO SCH (08:56)
[2023-03-13] MEDS: SODIUM CHLORIDE 0.9% 1,000 ML in EMPTY BAG 1 BAG IV SCH (08:56)
[2023-03-13] MEDS: CLOPIDOGREL 75 MG TAB PO SCH (08:56)
[2023-03-13] MEDS: ASPIRIN 81 MG PO SCH (08:56)
[2023-03-13] MEDS: lisinopriL 5 MG TAB PO SCH (08:56)
[2023-03-13] MEDS ORDERED: METOPROLOL SUCCINATE (ER) 25 MG TAB.ER.24H PO SCH ×2 (09:00)
[2023-03-13 12:17] VITALS: BP 141/76; PULSE 77
--- NOTE | 2023-03-13 13:22 | P.PN ---
Subjective Progress Note Date: 03/13/23 This is Miguel Hernandez NP, I'm dictating on behalf of Dr. Pradhan's H&P and A&P. Patient was interviewed and examined. Patient is a pleasant 77-year-old male who initially came in the hospital with complaints of chest pain and NSTEMI. Patient is post cardiac catheterization, which demonstrated 95% stenosis of the mid RCA, occluded LAD, moderate atherosclerotic plaque in the ostial portion of the circumflex, patent bypass grafts of JIMENEZ to LAD, RCA venous graft was also patent. Patient continues to r eport that he is feeling fine today. He is denying chest pain, shortness of breath, dizziness, and heart palpitations. His blood pressure is noted to be improved. Per nursing, the patient's reported that he complained of indigestion while walking yesterday, but then denied this to the nursing staff. When asked, the patient denies that he had any chest pain during walking. GENERAL: Well-appearing, well-nourished and in no acute distress. NECK: Supple without JVD or thyromegaly. LUNGS: Breath sounds clear to auscultation bilaterally. Respiration equal and unlabored. No wheezes, rales or rhonchi. HEART: Regular rate and rhythm without murmurs, rubs or gallops. S1 and S2 heard. EXTREMITIES: Normal range of motion, no edema. No clubbing or cyanosis. Peripheral pulses intact and strong. VITALS: Temp 97.7, pulse 76, respirations 18, blood pressure 147/73, O2 saturation 98% on room air TELEMETRY: Normal sinus rhythm LABS: Reviewed, no new labs since yesterday IMPRESSION: 1. Acute non-ST segment elevation myocardial infarction, status post catheterization 2. Coronary artery disease, status post CABG 3. Dyslipidemia PLAN: Increase Imdur to 30 mg twice a day. If blood pressure is low, and lisinopril can be reduced. Patient may be discharged today from a cardiology standpoint, patient should follow-up with Dr. Velázquez in the office. Objective - Vital Signs Vital signs: Vital Signs Temp 97.7 F 03/13/23 08:54 Pulse 77 03/13/23 12:14 Resp 18 03/13/23 12:14 BP 141/76 03/13/23 12:14 Pulse Ox 98 03/13/23 12:14 FiO2 Intake & Output 03/12/23 03/13/23 03/13/23 18:59 06:59 18:59 Intake Total 474 354 Balance 474 354 Weight 90.2 kg Intake: Oral 474 354 Other: Voiding Method Toilet Toilet - Labs CBC & Chem 7: 03/10/23 13:37 03/12/23 08:38
--- NOTE | 2023-03-13 14:20 | P.DS ---
Providers Date of admission: 03/10/23 16:00 Expected date of discharge: 03/13/23 Attending physician: Mango Roman MD Consults: 03/10/23 15:59 Consult Physician Urgent Consulting Provider: [facility] Consult Reason/Comments: Non-STEMI Do you want consulting provider notified?: Yes Primary care physician: [facility] Course: Patient is a 77-year-old male with PMH of CAD post stent and CABG, hypertension, BPH that presents the ED for chest pain. This reports chest pain started this morning on he was in bed around 6 AM. His chest pain was midsternal, pressure- like in nature radiating to both of his arms. He also reported pain in his back. His chest pain was associated with diaphoresis and nausea. He took nitroglycerin tablets which improved his pain. He was able to call his biofuels manager who recommended that he come to the ED. He currently reports some mild pressure in his chest. He denies any headache, lower extremity edema, nausea or vomiting, fever or chills, cough, shortness of breath, palpitations, changes in urination or bowel habits. No changes in appetite or weight. He denies any dizziness, numbness/weakness/tingling of extremities. In the ED, his vital signs were stable. CBC was unremarkable. Coagulation panel within normal limits. CMP showed be on of 21, glucose 125, total bilirubin 1.4. Troponin was elevated at 0.168 with EKG showing sinus rhythm with ventricular rate of 94 and right bundle branch block. Chest x-ray was negative for acute process. Patient was admitted for further management of symptoms. 03/11 Patient was seen and examined. He underwent cardiac cath which showed RCA 95% stenosis, occluded LAD, moderate atherosclerotic plaque in the ostial portion JIMENEZ to LAD. Patient reports no chest pain after his procedure. 03/12 Patient was seen and examined. Patient reports no chest pain. He has no complaints. 03/13 Patient was seen and examined. Patient reports no chest pain. He has no complaints. Patient was discharged from a cardiology standpoint. General: non toxic, no distress, appears at stated age Derm: warm, dry Head: atraumatic, normocephalic, symmetric Eyes: EOMI, no lid lag, anicteric sclera Cardiovascular: Normal S1 S2. No m/r/g. Lungs: Clear to auscultation bilaterally Ext: no gross muscle atrophy, no edema, no contractures Neuro: no focal neuro deficits Psych: Alert, oriented, appropriate affect Discharge diagnosis: Non-ST elevation [place] Chronic conditions: CAD post stent and CABG, hypertension, BPH This complex discharge took 35 minutes to complete. Patient Condition at Discharge: Stable Plan - Discharge Summary Discharge Rx Participant: No New Discharge Prescriptions: New Metoprolol Succinate (ER) [Toprol XL] 12.5 mg PO DAILY #30 tab Isosorbide Mononitrate [Isosorbide Mononitrate ER] 30 mg PO BID 30 Days #60 tab Clopidogrel [Plavix] 75 mg PO DAILY #30 tab Continue lisinopriL [Zestril] 5 mg PO DAILY Aspirin EC [Ecotrin Low Dose] 81 mg PO DAILY Tamsulosin [Flomax] 0.4 mg PO HS Atorvastatin Calcium [Lipitor] 40 mg PO HS Discontinued Isosorbide Mononitrate ER [Imdur] 30 mg PO DAILY #30 tab.er.24h Discharge Medication List Aspirin EC [Ecotrin Low Dose] 81 mg PO DAILY 12/05/14 [History] lisinopriL [Zestril] 5 mg PO DAILY 12/05/14 [History] Tamsulosin [Flomax] 0.4 mg PO HS 12/28/18 [History] Atorvastatin Calcium [Lipitor] 40 mg PO HS 03/10/23 [History] Metoprolol Succinate (ER) [Toprol XL] 12.5 mg PO DAILY #30 tab 03/11/23 [Rx] Clopidogrel [Plavix] 75 mg PO DAILY #30 tab 03/13/23 [Rx] Isosorbide Mononitrate [Isosorbide Mononitrate ER] 30 mg PO BID 30 Days #60 tab 03/13/23 [Rx] Follow up Appointment(s)/Referral(s): Hector Velázquez MD [STAFF PHYSICIAN] - 03/29/23 3:30 pm (The office canceled 04/07/23 appointment.) Danish Tamez MD [Primary Care Provider] - 1-2 days (please call and make appointment ) Patient Instructions/Handouts: *[facility] - After Heart Catheterization - Informatics Coordinator Instructions Discharge Disposition: HOME SELF-CARE
== END 2023-03-13 14:11 | disposition home or self-care (01) | DRG 282 ==
LOC: EC 12:35 → 3SCARD 16:00
PROVIDERS: ADMIT Student in an Organized Health Care Education/Training Program; ATTEND Student in an Organized Health Care Education/Training Program
PROC: B2111ZZ Fluoroscopy of Multiple Coronary Arteries using Low Osmolar Contrast (ICD-10-PCS; 2023-03-11)
PROC: B2131ZZ Fluoroscopy of Multiple Coronary Artery Bypass Grafts using Low Osmolar Contrast (ICD-10-PCS; 2023-03-11)
PROC: 4A023N7 Measurement of Cardiac Sampling and Pressure, Left Heart, Percutaneous Approach (ICD-10-PCS; principal; 2023-03-11 13:30)
DX: I21.4 Non-ST elevation (NSTEMI) myocardial infarction (principal); I45.10 Unspecified right bundle-branch block; I25.82 Chronic total occlusion of coronary artery; E78.00 Pure hypercholesterolemia, unspecified; I10 Essential (primary) hypertension; I25.110 Atherosclerotic heart disease of native coronary artery with unstable angina pectoris; N40.0 Benign prostatic hyperplasia without lower urinary tract symptoms; Z95.1 Presence of aortocoronary bypass graft; Z95.5 Presence of coronary angioplasty implant and graft; Z79.899 Other long term (current) drug therapy; Z79.82 Long term (current) use of aspirin; Z28.311 Partially vaccinated for COVID-19
CPT/HCPCS: 36415; 71046; 80048; 80053; 80061; 83735; 84484; 85025; 85610; 85730; 93005; 93306; 93455; 94760; 96365; 96366; 99291

== ENCOUNTER → 2023-05-19 | Outpatient (CLI) | payer MEDICARE ==
[2023-05-19 13:34] LABS: Carbon Dioxide 27.1 mmol/L (21.6-31.8); Chloride 104 mmol/L (96-109); Sodium 141 mmol/L (135-145)
[2023-05-19 14:25] LABS: HCT 45.8 % (39.6-50.0); HGB 14.9 d/dL (12.0-15.0); MCHC 32.5 d/dL (32.0-37.0); MCV 95.4 FL (80.0-97.0); NRBC Per 100 WBC 0 X 10*3/uL (0.00-0.01); Platelet Count 171 X 10*3/uL (140-440); RDW 12.5 % (11.5-14.5); WBC 7.15 X 10*3/uL (4.50-10.00)
== END | disposition home or self-care (01) ==
LOC: LABPAT 07:21
PROVIDERS: ATTEND Internal Medicine Interventional Cardiology
DX: Z01.812 Encounter for preprocedural laboratory examination (principal); R94.39 Abnormal result of other cardiovascular function study
CPT/HCPCS: 80051; 82565; 84520; 85027

== ENCOUNTER 2023-06-03 08:52 | Day surgery (SDC) | payer MEDICARE ==
[~2023-06-03 08:52] MED LIST: ALPRAZolam 0.25 MG TAB PO PRN; ALPRAZolam 0.5 MG TAB PO PRN; ASPIRIN 325 MG TAB PO ONE; ATORVASTATIN 80 MG TAB PO ONE; HEPARIN SODIUM,PORCINE (1 ML) 2,500 UNIT in SODIUM CHLORIDE 0.9% 250 ML IRRIGATION PRN; HEPARIN SODIUM,PORCINE 10,000 UNIT in SODIUM CHLORIDE 0.9% 1,000 ML IRRIGATION PRN; NITROGLYCERIN SL TABS 0.4 MG TAB SUBLINGUAL PRN; SODIUM CHLORIDE 0.9% 1,000 ML in EMPTY BAG 1 BAG IV SCH
[2023-06-03] MEDS ORDERED: SODIUM CHLORIDE 0.9% 1,000 ML IV ONE (09:19)
[2023-06-03 09:48] VITALS: RESP 16; TEMP 97.8
[2023-06-03] MEDS ORDERED: HEPARIN SODIUM 1,000 UN/ML (10ML VL) ONE (10:22)
[2023-06-03] MEDS ORDERED: fentaNYL (PF) 50 MCG/ML 2 ML AMP ONE (10:22)
[2023-06-03] MEDS ORDERED: fentaNYL (PF) 50 MCG/ML 2 ML AMP IVP ONE (10:24)
[2023-06-03] MEDS ORDERED: LIDOCAINE 1% INJ 10MG/ML (5 ML VIAL-PF) SQ ONE (10:27)
[2023-06-03] MEDS ORDERED: VERAPAMIL SYRINGE (5 MG/10 ML) INTRAARTER ONE (10:28)
[2023-06-03] MEDS: HEPARIN SODIUM 1,000 UN/ML (10ML VL) IV ONE ×2 (10:36→10:44)
[2023-06-03] MEDS ORDERED: IOPAMIDOL-370 100ML BTL INJ ONE ×2 (11:13→11:23)
[2023-06-03] MEDS ORDERED: ZOLPIDEM 5 MG TAB PO PRN (11:46)
[2023-06-03] MEDS ORDERED: RX INFO: IV CONTRAST WAS GIVEN 1 EACH MISC MISCELLANE PRN (11:46)
[2023-06-03] MEDS ORDERED: ATROPINE SULFATE 0.1 MG/ML 10ML SYRINGE IV PRN (11:46)
[2023-06-03] MEDS ORDERED: MAG HYDROX/AL HYDROX/SIMETH 30 ML CUP PO PRN (11:46)
[2023-06-03] MEDS ORDERED: NITROGLYCERIN SL TABS 0.4 MG TAB SUBLINGUAL PRN (11:46)
--- NOTE | 2023-06-03 11:56 | P.CARDCATH ---
Date of Procedure: 06/03/23 Description of Procedure: Cardiac Catheterization: The patient is a 77-year-old male with known history of hypertension and hyperlipidemia, status post CABG and PCI who has been complaining of progressive dyspnea on exertion, limiting. Recommendations were made regarding cardiac catheterization, the risks and the complications were discussed with the patient who is in full understanding and agreement. Procedure Description: Patient was brought to cath lab radiological technologist in fasting semi-sedated state after receiving Fentanyl and Benadryl achieiving moderate conscious sedated state. Using Xylocaine Anesthesia and Seldinger technique, a 6-[place] sheath was introduced in the left radial artery . Subsequently, selective coronary angiography was performed using a 5-[place]aw[place] 4 bend Rocky catheter. Multiple views of the coronary artery including hemiaxial views were obtained. The right Rocky was used to cannulate the JIMENEZ to the LAD. A 6-[place] RCB catheter was used to cannulate the SVG to the RCA. Images of the grafts were obtained. The 5-[place] pigtail catheter was used to cross the aortic valve and LVEDP was calculated. PCI: After removing the catheters 6-[place] EBU 3.75 guiding catheter was introduced and the system and after cannulating the left main a 0.014 BMW J-wire was positioned in the distal left circumflex. Subsequently a Augmentix intravascular ultrasound catheter was introduced and images were obtained. Subsequently a 4.0 x 12 mm shockwave lithotripsy balloon was advanced and 3 inflations were done, after removing the balloon repeat intravascular ultrasound was done, subsequently 4.0 x 15 mm Xience derik point stent was advanced and deployed at 16 jorgito. The balloon was pulled back and another inflation was done. After removing the balloon repeat intravascular ultrasound imaging was performed and subsequently a 4.0 x 12 mm NC Treck balloon was advanced and one inflation at 12 jorgito was done. After removing the wire images were obtained and revealed stable successful stenting. Following that, catheter and sheath were removed. Hemostasis was obtained with deployment of TR band . There was no immediate complication. Patient was returned to room in stable condition. Of note, the patient received a total of 6500 units of intravenous heparin as well as intra- arterial verapamil. He was continued on clopidogrel. His ACT was monitored. He had no significant chest discomfort or EKG changes. Findings: Fluoroscopy: Severe calcification of the left main and the LAD was noted Left main: This is a large size vessel bifurcating into LAD and left circumflex, the left main in the mid distal segment has a 90% eccentric lesion, heavily calcified LAD: This vessel is totally occluded proximally Left circumflex: This is a large size vessel, nondominant, giving rise to a large obtuse marginal branch the proximal left circumflex has 20-30% plaque, the rest of the vessel has no high-grade stenosis RCA: Is is a dominant vessel, totally occluded in the midsegment with no significant antegrade flow and retrograde filling to the graft. SVG to the RCA the proximal and distal anastomotic sites are patent, the flow into the PDA is brisk. There is no evidence of obstructive disease JIMENEZ to the LAD and the distal anastomotic site is patent the flow into the LAD is brisk there is no evidence of high-grade stenosis Left Ventriculogram: Not performed Hemodynamics: There was no gradient across the aortic valve, LVEDP was 14-16 mmHg Conclusion: 1. Calcified left main and LAD 2. Severe stenosis in the mid distal segment of the left main 3. Chronically occluded LAD and RCA 4. Mild disease in the left circumflex 5. Patent JIMENEZ to the LAD and SVG to the RCA 6. Successful stenting of the mid and distal left main with reduction of stenosis from 90% to 0% with intravascular ultrasound imaging Recommendations: The patient will continue on aspirin and clopidogrel for 6 months in addition to aggressive coronary risks modifications. The findings and the recommendations were discussed with the patient and the family and they were in full understanding and agreement. Duration of sedation is 60 minutes.
[2023-06-03] MEDS ORDERED: SODIUM CHLORIDE 0.9% 1,000 ML in EMPTY BAG 1 BAG IV SCH (12:00)
[2023-06-03 16:06] VITALS: BP 106/66; PULSE 62
[2023-06-03] MEDS ORDERED: TAMSULOSIN 0.4 MG CAP.ER.24H PO SCH (21:00)
[2023-06-03] MEDS ORDERED: ATORVASTATIN 40 MG TAB PO SCH (21:00)
[2023-06-03] MEDS ORDERED: ISOSORBIDE MONONITRATE ER 30 MG TAB.ER.24H PO SCH (21:00)
[2023-06-04] MEDS ORDERED: CLOPIDOGREL 75 MG TAB PO SCH (09:00)
[2023-06-04] MEDS ORDERED: METOPROLOL SUCCINATE (ER) 25 MG TAB.ER.24H PO SCH (09:00)
[2023-06-04] MEDS ORDERED: ASPIRIN 81 MG PO SCH (09:00)
[2023-06-04] MEDS ORDERED: lisinopriL 5 MG TAB PO SCH (09:00)
== END 2023-06-03 15:35 | disposition home or self-care (01) ==
LOC: CATHCVL 08:52
PROVIDERS: ATTEND Internal Medicine Interventional Cardiology
DX: I25.10 Atherosclerotic heart disease of native coronary artery without angina pectoris (principal); I10 Essential (primary) hypertension; E78.5 Hyperlipidemia, unspecified; F17.210 Nicotine dependence, cigarettes, uncomplicated; Z79.82 Long term (current) use of aspirin; Z79.899 Other long term (current) drug therapy
CPT/HCPCS: 92978; 93459; 0715T; C1769 ×4; C9600; C1887; C1894; C1753; C1874; C1761; C1725; J2001; J3010; J1644; Q9967

== ENCOUNTER → 2023-08-19 | Outpatient (CLI) | payer MEDICARE ==
[2023-08-19 16:42] LABS: ALT 26 U/L (10-49); AST 25 U/L (14-35); Albumin 4.3 d/dL (3.8-4.9); Albumin/Globulin Ratio 1.87 Ratio (1.60-3.17); Alkaline Phosphatase 87 U/L (41-126); BUN/Creat Ratio 17.09 Ratio (12.00-20.00); Blood Urea Nitrogen 18.8 mg/dL (9.0-27.0); Calcium 9.7 mg/dL (8.7-10.3); Carbon Dioxide 26.1 mmol/L (21.6-31.8); Chloride 106 mmol/L (96-109); Chol/HDL Ratio 2.12 Ratio; Globulin 2.3 d/dL (1.6-3.3); Glucose 98 mg/dL (70-110); LDL Cholesterol,Calculated 33.2 mg/dL (0.0-131.0); Potassium 4.5 mmol/L (3.5-5.5); Sodium 142 mmol/L (135-145); Total Bilirubin 0.8 mg/dL (0.3-1.2); Total Protein 6.6 d/dL (6.2-8.2)
== END | disposition home or self-care (01) ==
LOC: LABWHC1 07:27
PROVIDERS: ATTEND Internal Medicine Interventional Cardiology
DX: E78.2 Mixed hyperlipidemia (principal)
CPT/HCPCS: 36415; 80053; 80061

== ENCOUNTER → 2024-03-01 | Outpatient (CLI) | payer MEDICARE ==
[2024-03-01 14:49] LABS: ALT 27 U/L (10-49); AST 22 U/L (14-35); Chol/HDL Ratio 2.26 Ratio; LDL Cholesterol,Calculated 52.8 mg/dL (0.0-131.0); VLDL Calculation 11.42 mg/dL (5.00-40.00)
== END | disposition home or self-care (01) ==
LOC: LABWHC1 08:13
PROVIDERS: ATTEND Nurse Practitioner Adult Health
DX: E78.2 Mixed hyperlipidemia (principal)
CPT/HCPCS: 36415; 80061; 84450; 84460

== ENCOUNTER → 2024-08-30 | Outpatient (CLI) | payer MEDICARE ==
[2024-08-30 16:02] LABS: ALT 18 U/L (10-49); AST 24 U/L (14-35); Albumin 4.1 g/dL (3.8-4.9); Albumin/Globulin Ratio 1.78 Ratio (1.60-3.17); Alkaline Phosphatase 73 U/L (41-126); BUN/Creat Ratio 16.18 Ratio (12.00-20.00); Blood Urea Nitrogen 17.8 mg/dL (9.0-27.0); Calcium 9.2 mg/dL (8.7-10.3); Carbon Dioxide 25.2 mmol/L (21.6-31.8); Chloride 106 mmol/L (96-109); Chol/HDL Ratio 2.28 Ratio; Globulin 2.3 g/dL (1.6-3.3); Glucose 110 mg/dL (70-110); LDL Cholesterol,Calculated 38.9 mg/dL (0.0-131.0); Potassium 4.3 mmol/L (3.5-5.5); Sodium 142 mmol/L (135-145); Total Bilirubin 0.9 mg/dL (0.3-1.2); Total Protein 6.4 g/dL (6.2-8.2)
== END | disposition home or self-care (01) ==
LOC: LABWHC1 08:08
PROVIDERS: ATTEND Internal Medicine Interventional Cardiology
DX: E78.2 Mixed hyperlipidemia (principal)
CPT/HCPCS: 36415; 80053; 80061